=== PATIENT | male | born 1960 | race Hispanic/Latino ===

== ENCOUNTER 2018-07-08 16:06 | Emergency (ER) | payer BC ==
[2018-07-08] MEDS ORDERED: HYDROCODONE/APAP 7.5/325 MG TAB ONE (17:11)
--- NOTE | 2018-07-08 17:39 | RAD REPORT ---
EXAM DESCRIPTION: CT - Spine Lumbar Wo Con - 07/08/2018 5:30 pm CLINICAL HISTORY: Radiculopathy. LOWER BACK PAIN COMPARISON: None TECHNIQUE: Axial noncontrast CT imaging of the lumbar spine was performed with coronal and sagittal re-formatted images. All CT scans are performed using dose optimization technique as appropriate and may include automated exposure control or mA/KV adjustment according to patient size. FINDINGS: A [id number] anterior compression fracture affects the L1 vertebral body. The loss o f vertebral body height is estimated at 30%. The surrounding soft tissues are mildly thickened. No in volvement of the posterior elements is seen. No canal compromise. Prominent degenerative changes present at L5-S1 with vacuum disc degeneration and endplate osteophyte s. This results in bilateral foraminal narrowing at this level. Bilateral calcifications both kidneys compatible with nephrolithiasis. IMPRESSION: Acute moderate anterior wedge compression fracture the L1 vertebral body as detailed. Bilateral nephrolithiasis without hydronephrosis. Prominent L5-S1 spondylosis.
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
== END 2018-07-08 18:47 | disposition home or self-care (01) ==
LOC: ER 16:06
DX: M48.56XA Collapsed vertebra, not elsewhere classified, lumbar region, initial encounter for fracture (principal); F17.200 Nicotine dependence, unspecified, uncomplicated
CPT/HCPCS: 72131; 99284

== ENCOUNTER 2018-10-10 09:39 | Emergency (ER) | payer BC ==
[2018-10-10] MEDS ORDERED: HYDROMORPHONE HCL 1 MG/ML INJ ONE ×2 (10:47→16:24)
[2018-10-10] MEDS ORDERED: KETOROLAC 30 MG/ML INJ ONE (10:47)
[2018-10-10] MEDS ORDERED: DIAZEPAM 10 MG/2 ML INJ SYRINGE ONE (10:48)
[2018-10-10] MEDS ORDERED: DEXAMETHASONE 10 MG/ML VIAL ONE ×2 (11:06→12:25)
[2018-10-10 11:15] LABS: Absolute Lymphocytes (CBC) 1.1 K/uL (0.7-4.9); Absolute Monocytes 0.9 K/uL (0.1-1.3); Absolute Neutrophil 12.6 K/uL (1.8-8.0); Basophils % 0.3 % (0-1.3); Eosinophils % 0.3 % (0-4.4); Hematocrit 41.6 % (39.6-49.0); Lymphocytes % 7.6 % (15.3-44.8); MCH 31.4 pg (27.0-35.0); MCV 92.5 fL (80-100); MPV 7.7 fL (7.6-11.3); Monocytes % 6.1 % (3.3-12.3)
[2018-10-10 11:25] LABS: Protime INR 1.28
[2018-10-10 11:31] LABS: ALT/SGPT 18 U/L (12-78); AST/SGOT 9 U/L (15-37); Albumin 3.8 g/dL (3.4-5.0); Alkaline Phosphatase 106 U/L (45-117); BUN Blood Urea Nitrogen 13 mg/dL (7-18); Bicarbonate 26 mmol/L (21-32); Bilirubin Direct 0.3 mg/dL (0-0.2); Bilirubin Total 0.9 mg/dL (0.2-1.0); Glucose Level 85 mg/dL (74-106); Magnesium 2.2 mg/dL (1.8-2.4); NT PRO-BNP 273 pg/mL (<125); Potassium 4.1 mmol/L (3.5-5.1); Protein, Total 7.9 g/dL (6.4-8.2); Sodium Level 139 mmol/L (136-145); Troponin (Emerg Dept Use Only) < 0.02 ng/mL (0.0-0.045)
[2018-10-10 11:33] LABS: Blood Morphology Comment NOT SEEN (NOT SEEN); Platelet Estimate ADEQ
--- NOTE | 2018-10-10 11:45 | EKG ---
Test Date: 2018-10-10 Test Time: 10:49:25 Lead Software Qa Engineer: ALMA DELIA MEASUREMENT RESULTS: Intervals: Rate: 81 [place]: 176 QRSD: 124 QT: 364 QTc: 422 Josephine: P: 33 [place]: 176 QRS: 19 T: 41 INTERPRETIVE STATEMENTS: Normal sinus rhythm Nonspecific intraventricular conduction delay Borderline ECG Compared to ECG 04/10/2014 17:20:31 Intraventricular conduction delay now present Electronically Signed On 10-10-18 11:43:55 PULLEY MAINTAINER by Matthew Mijares
--- NOTE | 2018-10-10 12:08 | RAD REPORT ---
EXAM DESCRIPTION: MRI - Lumbar Spine Wo Con - 10/10/2018 11:44 am CLINICAL HISTORY: Radiculopathy and back pain COMPARISON: June 2018 cat scan TECHNIQUE: Sagittal T1, T2 and STIR weighted sequences were obtained. Axial T1 and T2 sequences were obtained through the lumbar disc levels. FINDINGS: Moderate compression fracture involves the L1 vertebral body described on the June 2018 exam. L1-2, L2-3 and L3-4 demonstrate no significant abnormality A moderate left paracentral/posterolateral disc herniation is present at L4-5. Compression upon the l eft anterior aspect of the thecal sac is seen. . Ligamentum flavum and facet hypertrophy is seen. Disc bulge and facet hypertrophy is seen at L5-S1. Osteophytes are noted. Moderate narrowing of the r ight neural foramina is seen. Mild narrowing of the thecal sac IMPRESSION: Moderate left paracentral/posterolateral disc herniation L4-5 Spondylosis L5-S1 resulting in moderate right foraminal stenosis
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
--- NOTE | 2018-10-10 12:24 | EDPHYS ---
Physician Documentation [facility] Name: Boyd Cole Age: 57 yrs Sex: Male : 1960 Arrival Date: 10/10/2018 Time: 09:48 Bed 17 Private MD: ED Physician Marcus Flores HPI: 10/10 10:39 This 57 yrs old Male presents to ER via EMS with complaints of Back Pain. edward 10:39 The patient presents with pain that is acute, with no known mechanism of injury. The edward symptoms are located in the low back, lumbar area. Onset: The symptoms/episode began/occurred 2 day(s) ago. The pain radiates to the left low back and right low back. Associated signs and symptoms: The patient has no apparent associated signs or symptoms. The problem was sustained from unknown cause, hx of back injury in june,. Severity of symptoms: At their worst the symptoms were moderate, in the emergency department the symptoms are unchanged. The patient has experienced similar episodes in the past, a few times. Historical: - Allergies: :52 No Known Allergies; hb - Home Meds: :52 Zyrtec Oral [Active]; hb - PMHx: :52 None; hb - PSHx: 09:52 Knee surgery; lap band; cataract; hb - Immunization history:: Adult Immunizations up to date. - Social history:: Smoking status: Patient/guardian denies using tobacco. - Ebola Screening: : No symptoms or risks identified at this time. - Family history:: not pertinent. ROS: 10:40 Constitutional: Negative for fever, chills, and weight loss, Eyes: Negative for injury, edward pain, redness, and discharge, ENT: Negative for injury, pain, and discharge, Neck: Negative for injury, pain, and swelling, Cardiovascular: Negative for chest pain, palpitations, and edema, Respiratory: Negative for shortness of breath, cough, wheezing, and pleuritic chest pain, Abdomen/GI: Negative for abdominal pain, nausea, vomiting, diarrhea, and constipation, : Negative for injury, bleeding, discharge, and swelling, MS/Extremity: Negative for injury and deformity, Skin: Negative for injury, rash, and discoloration, Neuro: Negative for headache, weakness, numbness, tingling, and seizure, Psych: Negative for depression, anxiety, suicide ideation, homicidal ideation, and hallucinations, Allergy/Immunology: Negative for hives, rash, and allergies, Endocrine: Negative for neck swelling, polydipsia, polyuria, polyphagia, and marked weight changes, Hematologic/Lymphatic: Negative for swollen nodes, abnormal bleeding, and unusual bruising. 10:40 Back: Positive for injury or acute deformity, decreased range of motion, pain at rest, pain with movement, radiated pain, of the lumbar area, low back area and left low back. Exam: 10:40 Constitutional: This is a well developed, well nourished patient who is awake, alert, edward and in no acute distress. Head/Face: Normocephalic, atraumatic. Eyes: Pupils equal round and reactive to light, extra-ocular motions intact. Lids and lashes normal. Conjunctiva and sclera are non-icteric and not injected. Cornea within normal limits. Periorbital areas with no swelling, redness, or edema. ENT: Nares patent. No nasal discharge, no septal abnormalities noted. Tympanic membranes are normal and external auditory canals are clear. Oropharynx with no redness, swelling, or masses, exudates, or evidence of obstruction, uvula midline. Mucous membranes moist. Neck: Trachea midline, no thyromegaly or masses palpated, and no cervical lymphadenopathy. Supple, full range of motion without nuchal rigidity, or vertebral point tenderness. No Meningismus. Chest/axilla: Normal chest wall appearance and motion. Nontender with no deformity. No lesions are appreciated. Cardiovascular: Regular rate and rhythm with a normal S1 and S2. No gallops, murmurs, or rubs. Normal PMI, no JVD. No pulse deficits. Respiratory: Lungs have equal breath sounds bilaterally, clear to auscultation and percussion. No rales, rhonchi or wheezes noted. No increased work of breathing, no retractions or nasal flaring. Abdomen/GI: Soft, non-tender, with normal bowel sounds. No distension or tympany. No guarding or rebound. No evidence of tenderness throughout. Male : Normal genitalia with no discharge or lesions. Skin: Warm, dry with normal turgor. Normal color with no rashes, no lesions, and no evidence of cellulitis. MS/ Extremity: Pulses equal, no cyanosis. Neurovascular intact. Full, normal range of motion. Neuro: Awake and alert, GCS 15, oriented to person, place, time, and situation. Cranial nerves II-XII grossly intact. Motor strength 5/5 in all extremities. Sensory grossly intact. Cerebellar exam normal. Normal gait. Psych: Awake, alert, with orientation to person, place and time. Behavior, mood, and affect are within normal limits. 10:40 Back: pain, that is moderate, ROM is painful, with all movement, normal spinal alignment noted, CVA tenderness, is absent, muscle spasm, is appreciated in the left low back and right low back. Vital Signs: 09:51 BP 166 / 85; Pulse 77; Resp 16; Temp 98; Pulse Ox 100% on R/A; Pain 5/10; hb 10:45 BP 171 / 84; Pulse 74; Resp 15; Pulse Ox 98% on R/A; Pain 10/10; hb 10:55 Pulse Ox 88% on R/A; hb 11:00 Pulse Ox 99% on 2 lpm NC; hb 12:15 BP 130 / 80; Pulse 77; Resp 15; Pulse Ox 98% on 2 lpm NC; Pain 5/10; hb 15:27 BP 138 / 86; Pulse 84; Resp 18; Pulse Ox 97% on R/A; tl3 MDM: 09:59 Patient medically screened. [facility] 10:41 Data reviewed: vital signs, nurses notes, lab test result(s), EKG, radiologic studies, [facility] CT scan, MRI, plain films. 10/10 10:38 Order name: Basic Metabolic Panel; Complete Time: 11:54 [facility] 10/10 10:38 Order name: CBC with Diff; Complete Time: 11:54 [facility] 10/10 10:38 Order name: LFT's; Complete Time: 11:54 [facility] 10/10 10:38 Order name: Magnesium; Complete Time: 11:54 [facility] 10/10 10:38 Order name: NT PRO-BNP; Complete Time: 11:54 [facility] 10/10 10:38 Order name: PT-INR; Complete Time: 11:31 [facility] 10/10 10:38 Order name: Troponin (emerg Dept Use Only); Complete Time: 11:54 [facility] 10/10 10:38 Order name: XRAY Chest (1 view); Complete Time: 14:50 [facility] 10/10 10:38 Order name: Urine Culture [facility] 10/10 10:38 Order name: MRI Lumbar Spine wo Con; Complete Time: 12:19 [facility] 10/10 11:34 Order name: Manual Differential; Complete Time: 11:54 EDMS 10/10 12:08 Order name: Urine Dipstick--Ancillary (enter results); Complete Time: 14:50 gm 10/10 10:38 Order name: EKG; Complete Time: 10:39 [facility] 10/10 10:38 Order name: Cardiac monitoring; Complete Time: 11:04 [facility] 10/10 10:38 Order name: EKG - Nurse/Tech; Complete Time: 11:04 [facility] 10/10 10:38 Order name: IV Saline Lock; Complete Time: 11:04 [facility] 10/10 10:38 Order name: Labs collected and sent; Complete Time: 11:04 [facility] 10/10 10:38 Order name: O2 Per Protocol; Complete Time: 11:04 [facility] 10/10 10:38 Order name: O2 Sat Monitoring; Complete Time: 11:04 [facility] 10/10 10:38 Order name: Urine Dipstick-Ancillary (obtain specimen); Complete Time: 12:07 [facility] Administered Medications: 10:44 Drug: Dilaudid 1 mg Route: IVP; Site: right antecubital; hb 11:55 Follow up: Response: No adverse reaction hb 10:44 Drug: Zofran 4 mg Route: IVP; Site: right antecubital; hb 11:55 Follow up: Response: No adverse reaction hb 10:55 Drug: NS 0.9% 1000 ml Route: IV; Rate: 1 bolus; Site: right antecubital; hb 10:55 Drug: TORadol 30 mg Route: IVP; Site: right antecubital; hb 11:55 Follow up: Response: No adverse reaction hb 10:55 Drug: Valium 5 mg Route: IVP; Site: right antecubital; hb 11:55 Follow up: Response: No adverse reaction hb 10:55 Drug: Decadron - Dexamethasone 10 mg Route: IVP; Site: right antecubital; hb 11:55 Follow up: Response: No adverse reaction hb 12:21 Drug: Decadron - Dexamethasone 10 mg Route: IVP; Site: right antecubital; hb 13:20 Follow up: Response: No adverse reaction sg Disposition: 10/10/18 12:23 Transfer ordered to [facility]. Diagnosis is Low back pain - intractable, L4-5 disk herniation, sac compression. - Reason for transfer: Higher level of care. - Accepting physician is to [facility], intractable pain. - Condition is Fair. - Problem is new. - Symptoms have improved. Signatures: Dispatcher [employer] EDMarcus Dexter MD MD cha Williams, Irene, RN RN iw Samia Ba RN RN hb Gay, Steven RN sg Corrections: (The following items were deleted from the chart) 18:32 12:23 10/10/2018 12:23 Transfer ordered to [facility]. Diagnosis is iw Low back pain - intractable, L4-5 disk herniation, sac compression. Reason for transfer: Higher level of care. Accepting physician is to [facility], intractable pain. Condition is Fair. Problem is new. Symptoms have improved. edward
--- NOTE | 2018-10-10 13:16 | RAD REPORT ---
EXAM DESCRIPTION: Tori Single View10/10/2018 11:09 am CLINICAL HISTORY: Cough COMPARISON: 2013 FINDINGS: The patient is in a poor degree of inspiration. Lungs appear grossly clear. The heart is n ormal size IMPRESSION: No acute abnormalities displayed. If patient's symptoms persist PA and lateral chest se mona would be recommended
[2018-10-10 14:05] LABS: Urine Blood TRACE (NEG); Urine Glucose NEGATIVE (NEG); Urine Protein NEGATIVE (NEG); Urine Specific Gravity 1.025 (1.005-1.030); Urine pH 6.5 (5.0-7.0)
[2018-10-10] MEDS ORDERED: ONDANSETRON 4 MG/2 ML VIAL ONE (16:24)
[2018-10-10 18:38] VITALS: TEMP 98
[2018-10-10 18:44] VITALS: BP 138/86; O2SAT 97
== END 2018-10-10 18:32 | disposition short-term general hospital (02) ==
LOC: ER 09:39
DX: M51.26 Other intervertebral disc displacement, lumbar region (principal); G95.29 Other cord compression
CPT/HCPCS: 36415; 71045; 72148; 80048; 80076; 81003; 83735; 83880; 84484; 85025; 85610; 87086; 87088; 93005; 96374; 96375; 99284; J1100; J1170; J2405; J3360

== ENCOUNTER 2018-10-14 20:53 | Inpatient (IN) | payer BC ==
--- OUTSIDE RECORDS SUMMARY | 2018-10-14 20:55 | XMS REPORT | Clinical Summary ---
:1960 Author Organization [facility] Address [address] [place] [address] Care Team Providers Name Role Phone Unavailable Primary Care Provider Unavailable Allergies No Known Allergies Medications Medication Sig Dispensed Refills Start Date End Date Status naproxen (NAPROSYN) Take 500 mg by 0 Active 500 MG tablet mouth 2 (two) times daily with breakfast and dinner. cetirizine-pseudoeph Take 1 tablet by 0 Active edrine (ZYRTEC-D) 5 mouth nightly. mg-120 mg per tablet HYDROcodone-acetamin Take 1 tablet by 30 tablet 0 10/13/2018 10/23/2018 Active ophen (NORCO 10-325) mouth every 4 10-325 mg per tablet (four) hours as needed for Pain for up to 10 days. Max Daily Amount: 6 tablets tiZANidine Take 1 tablet (4 30 tablet 1 10/13/2018 10/23/2018 Active (ZANAFLEX) 4 MG mg total) by mouth tablet every 6 (six) hours as needed for up to 10 days. Active Problems Problem Noted Date Back pain 10/10/2018 Lumbar strain 10/10/2018 L4-L5 disc bulge 10/10/2018 Spondylolisthesis at L5-S1 level 10/10/2018 Encounters Date Type Specialty Care Team Description 10/13/2018 Travel 10/10/2018 - Hospital General Internal Miguela, L4-L5 disc bulge (Primary Dx); 10/13/2018 Encounter Medicine Danilo Samaniego MD Strain of lumbar region, initial encounter; Thomas Lopez Spondylolisthesis at L5-S1 level; MD Francine Stinson of lumbar region, subsequent encounter 10/10/2018 Travel after 10/13/2017 Social History Tobacco Use Types Packs/Day Years Used Date Current Every Day Smoker 3 35 Smokeless Tobacco: Never Used Alcohol Use Drinks/Week oz/Week Comments No Alcohol Habits Answer Date Recorded How often do you have a drink containing alcohol? Never 10/10/2018 How many drinks containing alcohol do you have on a typical Not asked day when you are drinking? How often do you have six or more drinks on one occasion? Not asked Sex Assigned at Date Recorded Not on file Job Start Date Occupation Industry Not on file Not on file Not on file Travel History Travel Start Travel End No recent travel history available. Last Filed Vital Signs Vital Sign Reading Time Taken Blood Pressure 151/67 10/13/2018 12:21 PM [employer] Pulse 87 10/13/2018 12:21 PM [employer] Temperature 35.7 C (96.3 F) 10/13/2018 12:21 PM [employer] Respiratory Rate 19 10/13/2018 12:21 PM [employer] Oxygen Saturation 95% 10/13/2018 12:21 PM [employer] Inhaled Oxygen Concentration - - Weight 86.2 kg (190 lb) 10/10/2018 6:21 PM [employer] Height 172.7 cm (5' 8") 10/13/2018 6:19 AM [employer] Body Mass Index - - Plan of Treatment Not on file Results Not on fileafter 10/13/2017 Insurance Payer Benefit Plan / Subscriber ID Type Phone Address Group BLUE CROSS/BLUE BCBS PPO POS EPO xxxxxxxxxxxx PPO [phone] [address] [place] [address] ([place]) [place] [address] Advance Directives For more information, please contact:[address] [phone] Code Status Date Activated Date Inactivated Comments Full Code 10/10/2018 6:42 PM This code status was determined by: Patient
[2018-10-14 21:38] LABS: Absolute Lymphocytes (CBC) 0.5 K/uL (0.7-4.9); Absolute Monocytes 1.8 K/uL (0.1-1.3); Absolute Neutrophil 20.7 K/uL (1.8-8.0); Basophils % 0.2 % (0-1.3); Hematocrit 39.9 % (39.6-49.0); MCH 30.7 pg (27.0-35.0); MCV 90.1 fL (80-100); MPV 8.2 fL (7.6-11.3); Monocytes % 7.7 % (3.3-12.3); RBC Red Blood Cell Count 4.43 M/uL (4.33-5.43)
[2018-10-14] MEDS ORDERED: LIDOCAINE 1% MPF 5 ML VIAL ONE (21:41)
[2018-10-14] MEDS ORDERED: MEPERIDINE HCL 25 MG/0.5 ML ONE (21:41)
--- NOTE | 2018-10-14 22:05 | RAD REPORT ---
EXAM DESCRIPTION: RAD - Knee Left 3 View - 10/14/2018 9:53 pm CLINICAL HISTORY: Knee pain, swelling COMPARISON: None. FINDINGS: No fracture, dislocation or periosteal reaction.Large joint effusion is present. Medial an d lateral compartment narrowing present. Marginal spurs are present in all compartments. No soft tiss ue abnormality. IMPRESSION: Large joint effusion with degenerative changes in the knee joint. No acute bone finding. Clinical concerns for internal derangement or occult bony injury could be further assessed with MR im aging.
--- NOTE | 2018-10-14 22:08 | RAD REPORT ---
EXAM DESCRIPTION: RAD - Elbow Left 3 View - 10/14/2018 9:53 pm CLINICAL HISTORY: Nontraumatic elbow pain COMPARISON: None. FINDINGS: No fracture is identified and no elevated posterior fat pad. There is no dislocation or pe riosteal reaction noted. Mild degenerative changes are present at the elbow joint. No foreign body o r significant soft tissue finding. IMPRESSION: Negative left elbow examination for acute finding.
[2018-10-14 22:48] LABS: Blood Morphology Comment NOT SEEN (NOT SEEN); Platelet Estimate ADEQ
[2018-10-14 23:16] LABS: Potassium 3.5 mmol/L (3.5-5.1)
[2018-10-15] MEDS ORDERED: VANCOMYCIN 1 GM/250 ML BAG ONE (00:53)
[2018-10-15 01:11] LABS: Appearance TURBID (CLEAR); Body Fluid Source SYNOVIAL; Body Fluid WBC 42795 /mm^3; Color of fluid Yellow (COLORLESS)
--- NOTE | 2018-10-15 01:36 | EDPHYS ---
Physician Documentation [facility] Name: Boyd Cole Age: 57 yrs Sex: Male : 1960 Arrival Date: 10/14/2018 Time: 20:54 Bed 17 Private MD: ED Physician Beto Frederick HPI: 10/14 21:12 This 57 yrs old Male presents to ER via EMS with complaints of swollen and rn painful left knee. 21:12 The patient presents with pain, swelling. The complaints affect the left knee. Onset: rn The symptoms/episode began/occurred today. Modifying factors: The symptoms are alleviated by remaining still, the symptoms are aggravated by movement, bending knee. Severity of symptoms: At their worst the symptoms were moderate, in the emergency department the symptoms are unchanged. The patient has experienced similar episodes in the past. Reports left knee pain and swelling, just discharged from [facility] yesterday for back spasm and chronic back issues, reports at home, not moving much, + dark urine and swelling/pain to left knee, + pain to left elbow as well, no drug use, no trauma. No fever. Knee swelling has happened before, has had knee surgeries, but never this bad. . Historical: - Allergies: 21:06 No Known Allergies; jb4 - Home Meds: 21:06 Hydrocodone-Acetaminophen Oral [Active]; tizanadine [Active]; jb4 - PMHx: 21:06 None; jb4 - PSHx: 21:06 Knee surgery; cataract; lap band; jb4 - Immunization history:: Adult Immunizations up to date. - Social history:: Smoking status: Patient uses tobacco products. - Ebola Screening: : No symptoms or risks identified at this time. - Family history:: not pertinent. - Hospitalizations: : No recent hospitalization is reported. ROS: 21:12 Constitutional: Negative for fever, chills, and weight loss, Eyes: Negative for injury, rn pain, redness, and discharge, Neck: Negative for injury, pain, and swelling, Cardiovascular: Negative for chest pain, palpitations, and edema, Respiratory: Negative for shortness of breath, cough, wheezing, and pleuritic chest pain, Abdomen/GI: Negative for abdominal pain, nausea, vomiting, diarrhea, and constipation, MS/Extremity: + left elbow and knee pain, + left knee swelling Skin: Negative for injury, rash, and discoloration, Neuro: Negative for headache, weakness, numbness, tingling, and seizure. Exam: 21:12 Constitutional: This is a well developed, well nourished patient who is awake, alert, rn appears uncomfortable with transfer Head/Face: Normocephalic, atraumatic. Eyes: Pupils equal round and reactive to light, extra-ocular motions intact. Lids and lashes normal. Conjunctiva and sclera are non-icteric and not injected. Cornea within normal limits. Periorbital areas with no swelling, redness, or edema. ENT: dry MM Cardiovascular: tachycardic, regular, no murmur Respiratory: Lungs have equal breath sounds bilaterally, clear to auscultation. No rales, rhonchi or wheezes noted. No increased work of breathing, no retractions or nasal flaring. Abdomen/GI: soft, non-tender Skin: Warm, dry with normal turgor. Normal color with no rashes, no lesions, and no evidence of cellulitis. MS/ Extremity: Pulses equal, no cyanosis. Neurovascular intact. + swollen and warm left knee with painful ROM, + painful ROM left elbow without swelling or redness. Neuro: Awake and alert, GCS 15, oriented to person, place, time, and situation. Cranial nerves II-XII grossly intact. Motor strength 5/5 in RUE/RLE/LLE (4/5 LUE limited due to pain). Sensory grossly intact. Cerebellar exam normal Vital Signs: 21:06 BP 148 / 87; Pulse 106; Resp 20; Temp 99.7(O); Pulse Ox 96% on R/A; Weight 86.18 kg jb4 (R); Height 5 ft. 8 in. (172.72 cm) (R); Pain 7/10; 21:30 BP 150 / 87; Pulse 106; Resp 18; Pulse Ox 97% on R/A; lp1 22:30 BP 140 / 85; Pulse 91; Resp 18; Pulse Ox 98% on R/A; lp1 23:15 BP 129 / 87; Pulse 82; Resp 16; Pulse Ox 98% on R/A; lp1 12/03 00:00 BP 140 / 78; Pulse 78; Resp 16; Pulse Ox 97% on R/A; lp1 00:45 BP 115 / 79; Pulse 80; Resp 18; Pulse Ox 95% on R/A; lp1 01:30 BP 151 / 81; Pulse 73; Resp 18; Pulse Ox 99% on R/A; lp1 02:25 Temp 98(O); lp1 02:30 BP 137 / 79; Pulse 75; Resp 16; Pulse Ox 100% on R/A; lp1 10/14 21:06 Body Mass Index 28.89 (86.18 kg, 172.72 cm) jb4 Procedures: 10/14 23:15 Joint Treatment: Aspiration of left knee using Lidocaine, 22g spinal needle. Removed 40 rn ml's of clear fluid, yellow fluid, Specimen sent to lab. Dressed with 4x4s, Patient tolerated well. MDM: 21:09 Patient medically screened. rn 10/15 01:26 ED course: COnsulted with Dr. Byrd, will see in AM, will admit to Dr. Dominguez. rn 01:34 Differential diagnosis: septic arthritis. Data reviewed: vital signs, nurses notes, mechanical shop laborer test result(s), radiologic studies, plain films, and as a result, I will admit patient. Counseling: I had a detailed discussion with the patient and/or guardian regarding: the historical points, exam findings, and any diagnostic results supporting the discharge/admit diagnosis, radiology results, the need for further work-up and treatment in the hospital. Admission orders: after a detailed discussion of the patient's condition and case, the admit orders are written by me. 10/14 21:11 Order name: CBC with Diff rn 10/14 21:11 Order name: Basic Metabolic Panel rn 10/14 21:11 Order name: Urine Culture rn 10/14 21:11 Order name: Urine Microscopic Only rn 10/14 21:11 Order name: CK rn 10/14 21:11 Order name: Blood Culture Adult (2) rn 10/14 21:11 Order name: Sed Rate rn 10/14 21:11 Order name: CRP rn 10/14 21:39 Order name: CBC with Automated Diff; Complete Time: 23:05 EDMS 10/14 21:40 Order name: Procalcitonin bb 10/14 22:25 Order name: Procalcitonin; Complete Time: 23:05 EDMS 10/14 22:31 Order name: Sedimentation Rate, Westergren; Complete Time: 23:05 EDMS 10/14 22:49 Order name: Manual Differential; Complete Time: 23:05 EDMS 10/14 23:05 Order name: Fluid Cell Count,Body rn 10/14 21:11 Order name: Extremity Venous Uni Ltd US rn 10/14 21:11 Order name: XRAY Elbow LEFT 3 view rn 10/14 21:11 Order name: XRAY Knee LEFT 3 view rn 10/14 22:08 Order name: RAD; Complete Time: 23:05 EDMS 10/14 22:10 Order name: RAD; Complete Time: 23:05 EDMS 10/14 23:05 Order name: Fluid Crystals rn 10/14 23:05 Order name: Body Fluid Culture rn 10/14 23:23 Order name: Basic Metabolic Panel; Complete Time: 00:27 EDMS 10/14 23:23 Order name: Creatine Phosphokinase; Complete Time: 00:27 EDMS 10/14 23:23 Order name: C-Reactive Protein; Complete Time: 00:27 EDMS 10/15 00:25 Order name: Body Fluid Culture EDTX 10/15 01:03 Order name: Body Fluid Crystals; Complete Time: 01:14 EDMS 10/15 01:53 Order name: Body Fluid Cell Count EDTX 10/14 21:11 Order name: IV Start; Complete Time: 21:29 rn Administered Medications: 10/14 21:50 Drug: Demerol 25 mg Route: IVP; Site: right wrist; lp1 22:30 Follow up: Response: Marked relief of symptoms; Pain is decreased lp1 23:00 Drug: Lidocaine (1 %) 1 vials Volume: 5 ml; Route: Infiltration; lp1 03 01:02 Drug: vancoMYCIN 1 grams Route: IVPB; Infused Over: 2 hrs; Site: right forearm; lp1 02:43 Follow up: IV Status: Infusion continued upon admission lp1 02:43 Not Given (To be given on admission to floor): Zosyn 3.375 grams IVPB once over 60 lp1 mins; (mix in NS 100 mL) Disposition: 10/15/18 01:35 Hospitalization ordered by Ginger Dominguez for Inpatient Admission. Preliminary diagnosis is Septic arthritis of left knee. - Bed requested for Telemetry/MedSurg (Inpatient). - Status is Inpatient Admission. jb4 - Condition is Stable. - Problem is new. - Symptoms have improved. UTI on Admission? No Signatures: Dispatcher [employer] EDMone Barrera RN RN kl Beto Frederick MD MD rn Pena, Laura, RN RN lp1 Jamal Reaves RN RN jb4 Corrections: (The following items were deleted from the chart) 02:19 01:35 Hospitalization Ordered by Ginger Dominguez MD for Inpatient Admission. Preliminary kl diagnosis is Septic arthritis of left knee. Bed requested for Telemetry/MedSurg (Inpatient). Status is Inpatient Admission. Condition is Stable. Problem is new. Symptoms have improved. UTI on Admission? No. rn 02:46 02:19 10/15/2018 01:35 Hospitalization Ordered by Ginger Dominguez MD for Inpatient jb4 Admission. Preliminary diagnosis is Septic arthritis of left knee. Bed requested for Telemetry/MedSurg (Inpatient). Status is Inpatient Admission. Condition is Stable. Problem is new. Symptoms have improved. UTI on Admission? No. kl
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
[2018-10-15] MEDS ORDERED: ONDANSETRON 4 MG/2 ML VIAL IV PRN (01:43)
[2018-10-15] MEDS: NA CHLORIDE 0.9% 1,000 ML IV SCH ×3 (02:00→18:19)
[2018-10-15] MEDS ORDERED: VANCOMYCIN/NS 1 gm 1 GM/250 ML BAG IVPB ONE (02:15)
[2018-10-15] MEDS ORDERED: PIPER/TAZO/NS 3.375gm 3.375 GM/100 ML BAG IVPB ONE (02:41)
[2018-10-15] MEDS ORDERED: VANCOMYCIN 1 GM/VIAL ONE (03:45)
[2018-10-15] MEDS ORDERED: NA CHLORIDE 0.9% 250 ML ONE (03:45)
[2018-10-15] MEDS ORDERED: PIPER/TAZO/NS 3.375gm 3.375 GM/100 ML BAG ONE (03:46)
[2018-10-15] MEDS ORDERED: NA CHLORIDE 0.9% 1,000 ML IV ONE (04:10)
[2018-10-15] MEDS: Levofloxacin500mg IV 500 MG/100 ML BAG IV SCH (04:45)
[2018-10-15 05:08] VITALS: BMI 28.8
[2018-10-15 06:10] LABS: Absolute Lymphocytes (CBC) 0.9 K/uL (0.7-4.9); Absolute Monocytes 1.6 K/uL (0.1-1.3); Absolute Neutrophil 16.5 K/uL (1.8-8.0); Basophils % 0.1 % (0-1.3); Eosinophils % 0.1 % (0-4.4); Lymphocytes % 4.6 % (15.3-44.8); MCH 31.2 pg (27.0-35.0); MCV 89.8 fL (80-100); MPV 8.7 fL (7.6-11.3); Monocytes % 8.4 % (3.3-12.3); RBC Red Blood Cell Count 4.12 M/uL (4.33-5.43)
[2018-10-15 06:18] LABS: Protime INR 1.32
[2018-10-15 06:21] LABS: Potassium 3.5 mmol/L (3.5-5.1)
--- NOTE | 2018-10-15 07:44 | RAD REPORT ---
EXAM DESCRIPTION: USExtremity Venous Uni Ltd10/14/2018 10:09 pm CLINICAL HISTORY: left leg pain COMPARISON: None. FINDINGS: Left common femoral, superficial femoral, popliteal and posterior tibial veins are compre ssible and demonstrate augmentation. Doppler demonstrates good flow. IMPRESSION: No evidence of deep venous thrombosis involving the left lower extremity.
--- NOTE | 2018-10-15 08:00 | P.HP ---
Certification for Inpatient Patient admitted to: Inpatient With expected LOS: >2 Midnights Patient will require the following post-hospital care: None Practitioner: I am a practitioner with admitting privileges, knowledge of patient current condition, hospital course, and medical plan of care. Services: Services provided to patient in accordance with Admission requirements found in Title 42 Section 412.3 of the Code of Federal Regulations Patient History Date of Service: 10/15/18 Reason for admission: Septic arthritis History of Present Illness: Patient is a 57-year-old gentleman who came into the hospital with pain in his left knee. Apparently was swollen twice as large as the right knee. The family brought him into the hospital to be evaluated. He was in the ER a few days ago with back pain and herniated discs. There was no cord compression so patient was discharged home from [facility]. When he got home he was doing okay until 24 hr later when the knee started to swell. As the swelling worsened he came to the ER. In the ER he had a arthrocentesis performed which revealed Gram-positive rods from the fluid. Patient will be admitted for septic arthritis. Patient also has involvement of the left elbow. Blood cultures are pending. Echocardiogram is pending. Patient will need to be treated with broad-spectrum antibiotic coverage pending culture results. Allergies No Known Allergies Allergy (Verified 09/07/17 16:50) Home Medications: Cetirizine HCl/Pseudoephedrine [Zyrtec-D Tablet] 1 each PO DAILY 09/07/17 Triamcinolone Acetonide [Nasacort] 10.8 ml NS DAILY 09/07/17 Hydrocodone Bit/Acetaminophen [Hydrocodon-Acetaminophn 10-325] 1 tab PO Q4HP PRN 10/15/18 Naproxen [Naprosyn] 500 mg PO BID 10/15/18 Tizanidine [Zanaflex*] 4 mg PO Q6HP PRN 10/15/18 - Past Medical/Surgical History Has patient received pneumonia vaccine in the past: No Diabetic: No -: Allergic rhinitis -: cataracts l eye -: Back pain -: bilateral knee surgeries -: lap gloria -: lap band surgery -: lens replacement left eye -: Spinal fusion - Family History Father Medical History: Cancer Notes: , esophageal ca Mother Medical History: Heart disease, Diabetes Notes: - Social History Smoking Status: Current every day smoker Alcohol use: No CD- Drugs: No Caffeine use: Yes Place of Residence: Home Review of Systems 10-point ROS is otherwise unremarkable Physical Examination - Vital Signs Temperature: 98.1 F Blood Pressure: 125/63 Pulse: 68 Respirations: 20 Pulse Ox (%): 96 - Physical Exam General: Alert, In no apparent distress, Oriented x3 HEENT: Atraumatic, PERRLA, Mucous membr. moist/pink, EOMI, Sclerae nonicteric Neck: Supple, 2+ carotid pulse no bruit, No LAD, Without JVD or thyroid abnormality Respiratory: Clear to auscultation bilaterally, Normal air movement Cardiovascular: Regular rate/rhythm, Normal S1 S2, No murmurs Gastrointestinal: Normal bowel sounds, Soft and benign, Non-distended, No tenderness Musculoskeletal: No clubbing, Swelling, Erythema, Tenderness, Warmth Integumentary: Tenderness/swelling, Erythema, Warmth Neurological: Normal gait, Normal speech, Normal strength at 5/5 x4 extr, Normal tone, Sensation intact, Cranial nerves 3-12 intact, Normal affect Lymphatics: No axilla or inguinal lymphadenopathy - Studies Laboratory Data (last 24 hrs) 10/14/18 21:25: Sodium 132 L, Potassium 3.5, BUN 33 H D, Creatinine 1.10, Glucose 157 H 10/14/18 21:25: WBC 23.0 H* D, Hgb 13.6, Hct 39.9, Plt Count 200 Assessment & Plan - Problems (Diagnosis) (1) Septic arthritis Current Visit: Yes Status: Acute (2) Gram positive septicemia Current Visit: Yes Status: Acute (3) Polyarthropathy Current Visit: Yes Status: Acute - Plan 1. Continue with IV antibiotic 2. Continue with local wound care 3. Orthopedic consultation 4. Gentle IV hydration 5. Monitor CBC and await blood culture results 6. Strict blood sugar monitoring 7. Pain control 8. Will schedule echocardiogram as patient has polyarthropathy 9. GI and DVT prophylaxis Discharge Plan: Home Plan to discharge in: Greater than 2 days - Advance Directives Does patient have a Living Will: No Does patient have a Durable POA for Healthcare: No - Code Status/Comfort Care Code Status Assessed: Yes Code Status: Full Code Critical Care: No Time Spent Managing PTS Care (In Minutes): 45
[2018-10-15 08:10] LABS: Urine Appearance CLOUDY; Urine Blood NEGATIVE (NEG); Urine Color DK YELLOW; Urine Glucose NEGATIVE (NEG); Urine Protein 1+ (NEG); Urine Specific Gravity 1.025 (1.005-1.030); Urine pH 5.5 (5.0-7.0)
[2018-10-15 08:14] LABS: Urine Bilirubin 1+ (NEG); Urine Microscopic Reflex ORDER UMIC
[2018-10-15 08:21] LABS: Urine Amorphous Sediment 2+ /HPF (NONE SEEN); Urine Bacteria LOADED /HPF (NONE SEEN); Urine Culture Reflex Order NOT NEEDED; Urine Mucus 1+ /HPF (NONE SEEN); Urine RBC NONE SEEN /HPF (NONE SEEN)
[2018-10-15] MEDS ORDERED: VANCOMYCIN 1.5 GM in NA CHLORIDE 0.9% 500 ML IVPB SCH ×2 (09:00→20:00)
[2018-10-15] MEDS: HYDROMORPHONE HCL 1 MG/ML INJ IV PRN ×2 (09:46→22:14)
[2018-10-15] MEDS ORDERED: LIDOCAINE 1% MPF 5 ML VIAL IJ ONE (10:47)
[2018-10-15 11:53] LABS: Body Fluid WBC 22689 /mm^3
[2018-10-15] MEDS ORDERED: LIDOCAINE 1% MPF 5 ML VIAL IM ONE (12:11)
[2018-10-15] MEDS ORDERED: FENTANYL CITR 100 MCG/2 ML ONE ×3 (12:57→16:12)
[2018-10-15] MEDS ORDERED: LIDOCAINE 2% MPF 5 ML VIAL ONE (12:57)
[2018-10-15] MEDS ORDERED: PROPOFOL 200 MG/20 ML VIAL IV ONE (12:57)
[2018-10-15] MEDS ORDERED: MIDAZOLAM HCL 2 MG/2 ML INJ ONE (12:57)
[2018-10-15] MEDS ORDERED: Ringers Lactate 1,000 ML IV ONE (13:35)
[2018-10-15] MEDS ORDERED: BUPIVACAINE 0.25% PF 10 ML VIAL ONE (15:12)
[2018-10-15] MEDS: MEPERIDINE HCL 50 MG/ML AMP ONE ×3 (16:58→17:12)
--- NOTE | 2018-10-15 17:07 | P.BOP ---
Preoperative diagnosis: LEFT KNEE AND LEFT ELBOW SEPTIC SYNOVITIS Postoperative diagnosis: SAME Primary procedure: ARTHROSCOPIC IRRIGATION AND DEBRIDEMENT LEFT KNEE SEPTIC SYNOVITIS Secondary procedure: ASPIRATION AND PULSE LAVAGE LEFT ELBOW SEPTIC SYNOVITIS Cath Lab: [facility]jandro Byrd Estimated blood loss: 50 mL Specimen: CULTURES SENT LEFT KNEE Findings: HYPERTROPHIC SYNOVITIS&FIBRIN DEBRIS L KNEE;SAME YELLOW TURBID ASP.L ELBOW Anesthesia: General Complications: None Fluids & blood products: INJ 10 mL 0.25%MARCAINE PLAIN L KNEE;5mL L ELBOW Transferred to: Recovery Room Condition: Good
[2018-10-15 17:25] LABS: Appearance VERY TURBID (CLEAR); Body Fluid Source SYNOVIAL; Color of fluid Red (COLORLESS)
[2018-10-15] MEDS: VANCOMYCIN 1.5 GM in NA CHLORIDE 0.9% 500 ML IVPB SCH (18:18)
[2018-10-16] MEDS: Levofloxacin500mg IV 500 MG/100 ML BAG IV SCH (01:16)
--- NOTE | 2018-10-16 03:02 | CON ---
Date of Consultation: 10/15/2018 Requesting Physician: The consultation request is by Dr. Ginger Dominguez. Reason For Consultation: Consultation is in regard to septic arthritis, left knee. History Of Present Illness: This 57-year-old male initially woke up with severe back pain and rapidl y became unable to ambulate because of pressure and pain in his lower back. The patient came to the emergency room at [facility], where he was evaluated with MRI scan of the lumbar spine , which showed lumbar disk herniation and significant neurologic concerns, so the patient was transfe rred to [facility] in [place], where he stayed for several days at bedrest. He was being mo bilized with a walker when he noted discomfort in his left knee. He was using the walker, when he al so noted discomfort in his left elbow. The patient was discharged to home and on the day following h is return to home, he awoke to find his knee drastically swollen and noted losing range of motion for his left elbow along with increasing discomfort with its use. The patient came to [facility] ED, wh ere arthrocentesis of the left knee produced more than 60 mL of yellow turbid fluid and the patient w as admitted for treatment of septic arthritis, initiated on vancomycin and Zosyn IV antibiotics. Ort ora consultation was subsequently requested. Allergies: THE PATIENT HAS NO KNOWN ALLERGIES. Medications: Medications taken were reviewed. Past Medical History: The patient has had been treated for back pain, bilateral knee surgeries, arth roscopies, cataracts, 1 eye and allergic rhinitis. The patient also surgically had a lap gloria proce dure and lap band surgery and a spinal fusion. Family History: Reviewed, noncontributory as was a 10-point review of systems. Review of Systems: Noncontributory. Physical Examination: Vital Signs: Temperature 98.1, blood pressure 125/63, pulse 68, respirations 20, and pulse oximeter is 96%. HEENT: Within normal limits. Neck: Supple. Chest: Clear to auscultation. Heart: Regular rate and rhythm. Abdomen: Soft and nontender. Active bowel sounds were present. Genital: Deferred. Rectal: Deferred. Extremities: On examination of the extremities, the patient today after 5 syringes totaling 60 mL of fluid were removed, has returned to the turgid 4+ effusion, the patient described on the day of his presentation to the emergency room. The knee is quite painful, lacking full extension and flexion, w orking basically in the range of 45 degrees to 30 degrees towards extension and to 60 degrees towards flexion. The knee is stable to exam. The patient's elbow will not extend past 30 degrees from full extension and will not flex past 90 degrees. There is a fullness on the lateral side of the elbow, suggesting a significant joint effusion within the left elbow. Laboratory Data: The laboratory evaluation showed white blood cell count of 23.0, 90% neutrophils. Sed rate was elevated at 31. C-reactive protein was elevated at 342. Procalcitonin was 2.58, elevat ed, creatine kinase was low at 10. BUN was high at 33. The patient was hyponatremic at 132 and GFR was 69. The aspirate produced 42,795 white blood cells, 90% neutrophils. Crystals were none seen. Gram stain showed gram-positive rods and 25 white cells per oil field. Assessment: This patient is having an almost simultaneous onset of septic arthritis in the left knee and left elbow after a sudden attack of lumbago and sciatica that may or may not be related. The co ncern with sepsis in the left elbow can be further evaluated with arthrocentesis of the elbow. The p atient was presented with that option and elected to proceed after discussion of the risks and benefi ts. Materials were gathered and the left elbow lateral aspect was prepped with Betadine followed by chlorhexidine and alcohol swabs. The needle was introduced in the soft spot, just distal to the late ral epicondyle and proximal to the radial head while 1% lidocaine was being injected in the skin and subcutaneous tissue upon entry. Aspiration produced not a significant large amount of fluid, but osmani roximately 2-1/2 mL of aspirant was acquired and sent for cell count and differential, Gram stain and cultures both aerobic and anaerobic. Plan: The patient must be taken today for irrigation and debridement of the severely distended left knee septic arthritis. The early report from microbiology regarding the elbow aspirate will help dec allen if irrigation of the left elbow is appropriate at the same time. DENY/NATALIYA Voice ID: [id number] Report ID: [id number]
[2018-10-16] MEDS: HYDROMORPHONE HCL 1 MG/ML INJ IV PRN ×4 (03:21→17:22)
[2018-10-16] MEDS: VANCOMYCIN 1.5 GM in NA CHLORIDE 0.9% 500 ML IVPB SCH ×2 (03:21→16:08)
--- NOTE | 2018-10-16 03:42 | OP ---
Date of Procedure: 10/15/2018 Surgeon: Alejandro Byrd MD Custodial Supervisor: Alejandro Byrd M.D. Preoperative Diagnosis: Left knee and left elbow septic synovitis. Postoperative Diagnosis: Left knee and left elbow septic synovitis. Primary Procedure: Arthroscopic irrigation and debridement, left knee septic synovitis, followed by aspiration and pulse lavage, left elbow septic synovitis. Indications: This 57-year-old male had sudden onset of 4+ effusion, left knee, after presenting with back problems and spending several days being evaluated at [facility] in the [facility] in [place]. The patient noted some discomfort in his knee as he started ambulating after several da ys of bed rest and his ballooned up the first day after he got home. He presented and it was found t o have sepsis, proven by aspiration and simultaneous but slower onset of limited motion and pain bega n at the same time as knee symptoms and an aspiration this morning gave indication of intra-articular sepsis there as well. The lab found over 20,000 white blood cells per cubic mL. Gram stain is stil l pending and cultures are pending. The patient is taken for irrigation and debridement of his extre malathi symptomatic septic left knee. At the same time, a pulse lavage is planned for the left elbow. The patient is aware of risks and benefits. All questions have been answered and he has elected to p dago. Technique: The patient was taken to the operating room and given a general anesthetic. After being placed on the operative table, he was set up for arthroscopy with a tourniquet at the proximal left t high and a leg adler. The foot of the table was dropped, so that the lower leg would dangle. A tro ugh cushion was placed under the right lower extremity elevated to make sure the hip was not in exten malcolm during this procedure. A time-out was called. All pertinent facts were discussed. It was deci ded to proceed with the planned procedures. The scope was inserted through the distal lateral portal and an irrigation trocar was inserted through the distal medial portal. A yellow turbid purulent fl uid was withdrawn. He had 5 cc sent for culture with a Gram stain indicating gram-positive rods. Th e portion of synovial fluid was cultured again for Gram stain and culture 1 day after starting IV ant ibiotic therapy. The inspection in the knee showed fibrin debris lightly adherent to hypertrophic te nosynovitis mounds. The patient had an elevated ProTime with INR 1.35, so debridement was quite limi herbert. The fibrin debris was considered low-hanging fruit and was suctioned away with a suction shaver . The small areas of synovial tissue that were removed produced brisk bleeding and was quite limited to avoid a tense hemarthrosis following the procedure. A 9 L of normal saline were irrigated throug h the knee. Arthroscopy equipment was withdrawn and interrupted sutures of 4-0 nylon were used to cl ose the portals. A compression bandage was applied with Xeroform, 4 x 4 flats, and an ABD. Soft rol l was applied and an David wrap was applied on top of the soft roll. Attention was then turned to the left elbow. New sterile gloves were applied. The elbow was prepped and draped without a tourniquet and 18-gauge needles were placed in the intra-articular space of the composer teaching artist lateral left elbow and ir rigation fluid was passed through the joint and at one time pulse lavage was utilized with fluid jordan g in and out as it became more and more turbid. The pressure dry bandage was then applied to the lef t elbow. The initial injection provided a more pure aspirate even than attained this morning and it was the same yellow turbid fluid that was encountered in aspiration of the knee. Estimated blood los s was 50 mL. The patient was then taken to recovery room having tolerated this procedure well. Inje ction of 10 mL of 0.25% Marcaine plain was accomplished in the incisions of the left knee and 5 mL wa s injected into the puncture areas for the left elbow. DENY/NATALIYA Voice ID: [id number] Report ID: [id number]
[2018-10-16 05:04] LABS: Absolute Lymphocytes (CBC) 0.8 K/uL (0.7-4.9); Absolute Monocytes 1.1 K/uL (0.1-1.3); Absolute Neutrophil 14.4 K/uL (1.8-8.0); Basophils % 0.3 % (0-1.3); Eosinophils % 0.1 % (0-4.4); Hematocrit 35.2 % (39.6-49.0); Lymphocytes % 4.9 % (15.3-44.8); MCH 31.5 pg (27.0-35.0); MCV 90.3 fL (80-100); MPV 8.5 fL (7.6-11.3); RBC Red Blood Cell Count 3.89 M/uL (4.33-5.43)
[2018-10-16 05:18] LABS: Protime INR 1.37
[2018-10-16 05:21] LABS: BUN Blood Urea Nitrogen 19 mg/dL (7-18); Bicarbonate 21 mmol/L (21-32); Glucose Level 81 mg/dL (74-106); Potassium 3.7 mmol/L (3.5-5.1); Sodium Level 139 mmol/L (136-145)
[2018-10-16] MEDS: NA CHLORIDE 0.9% 1,000 ML IV SCH ×3 (09:15→23:02)
--- NOTE | 2018-10-16 17:08 | P.PN ---
Subjective Date of Service: 10/16/18 Chief Complaint: Septic arthritis Patient seen and examined at bedside with RN. Chart reviewed. Case discussed with orthopedic at this time. Currently patient is on IV antibiotics pending culture. Does complain of having some pain in the elbow and the left knee. However is able to move better than before Review of Systems 10-point ROS is otherwise unremarkable Physical Examination - Vital Signs Temperature: 100.2 F Blood Pressure: 198/98 Pulse: 90 Respirations: 18 Pulse Ox (%): 95 - Physical Exam General: Alert, In no apparent distress HEENT: Atraumatic, PERRLA, EOMI Neck: Supple, JVD not distended Respiratory: Clear to auscultation bilaterally, Normal air movement Cardiovascular: Regular rate/rhythm, Normal S1 S2 Gastrointestinal: Normal bowel sounds, No tenderness Musculoskeletal: Erythema, Tenderness, Warmth Integumentary: No rashes Neurological: Normal speech, Normal tone, Normal affect Lymphatics: No axilla or inguinal lymphadenopathy - Studies Microbiology Data (last 24 hrs): 10/14/18 23:00 Body Fluid - Left Knee Gram Stain - Final Medications List Reviewed: Yes Assessment And Plan - Current Problems (Diagnosis) (1) Septic arthritis Onset Date: 10/16/18 Current Visit: Yes Status: Acute Plan: Septic arthritis of the left elbow and left knee -orthopedics consulted appreciated recommendations at this time -status post arthrocentesis -pending cultures at this time -IV antibiotics vanc and Levaquin Qualifiers: Septic arthritis location: multiple locations Septic arthritis organism: due to unspecified organism Qualified Code(s): M00.9 - Pyogenic arthritis, unspecified (2) Polyarthropathy Onset Date: 10/16/18 Current Visit: Yes Status: Acute - Plan Pending clinical improvement at this time Discharge Plan: Home Plan to discharge in: Greater than 2 days - Code Status/Comfort Care Code Status Assessed: Yes Critical Care: No
[2018-10-16] MEDS: ACETAMINOPHEN 500 MG TAB PO PRN (17:22)
[2018-10-17] MEDS: Levofloxacin500mg IV 500 MG/100 ML BAG IV SCH (01:13)
[2018-10-17] MEDS: VANCOMYCIN 1.5 GM in NA CHLORIDE 0.9% 500 ML IVPB SCH ×2 (03:13→17:37)
[2018-10-17] MEDS: NA CHLORIDE 0.9% 1,000 ML IV SCH ×2 (04:00→14:10)
[2018-10-17] MEDS: HYDROMORPHONE HCL 1 MG/ML INJ IV PRN ×4 (05:22→20:46)
[2018-10-17] MEDS: ACETAMINOPHEN 500 MG TAB PO PRN (12:10)
--- NOTE | 2018-10-17 12:15 | P.PN ---
Date of Service: 10/16/18 (POD#1) S: FIRST POSTOP DAY AFTER FORMAL IRRIGATION AND DEBRIDEMENT UNDER GENERAL ANESTHESIA DONE WITH ARTHROSCOPIC TECHNIQUE FOR SEPTIC LEFT KNEE, PATIENT IS RELATIVELY COMFORTABLE BUT HAS REACCUMULATED A SIGNIFICANTLY TENSE EFFUSION IN THE LEFT KNEE. BY CONTRAST, THE LEFT ELBOW WAS TREATED DURING THE SAME ANESTHESIA WITH ASPIRATION AND NORMAL SALINE PULSE LAVAGE WITH TWO 18-GAUGE NEEDLES, AND THE PATIENT INDICATES THERE ARE NO SYMPTOMS IN THE LUE TODAY. O: LOW GRADE TEMP 99.1 TO 100.2, PAIN 10,4,4,7 AND 4/10; BANDAGES CLEAN AND DRY ; NV EXAMS INTACT. KNEE ROM LIMITED BY EFFUSION, FREE ROM LEFT ELBOW. PRELIMINARY MICROBIOLOGY INDICATES KNEE ASPIRATE POSITIVE FOR COCCI IN PAIRS AND CHAINS,SENSITIVITY PENDING FOR ALPHA HEMOLYTIC STREPTOCOCCUS. ASPIRATION DONE FOR THE LEFT ELBOW IN THE PATIENT'S ROOM PART OF CONSULTATION PRIOR TO SURGERY SHOWED 22,689 FLUID WBCs AND GRAM STAIN IS SHOWING POSITIVE COCCI IN CLUSTERS. PATIENT CONTINUES ON VANC AND LEVAQUIN. ZOSYN DCED 10/15. ASSESS: PATIENT'S RESURGENT EFFUSION POSSIBLY DUE TO POST OP HEMORRHAGIC EFFUSION INR 1.32, MINIMIZED DEBRIDEMENT TO FIBRIN DEBRIS AND OCCASIONAL ACCIDENTAL ENCOUNTERS WITH HYPERTROPHIC SYNOVIAL TISSUE THAT DID DEMONSTRATE AGGRESSIVE BLEEDING TOURNIQUET WAS NOT INFLATED. P: EXPECT PATIENT TO RESPOND TO BROAD-SPECTRUM ANTIBIOTICS THAT WILL BE ADJUSTED SENSITIVITIES COME IN. WE WILL CONSIDER ASPIRATION OF LEFT KNEE AGAIN TOMORROW IF TENSE EFFUSION PERSISTS. PHYSICAL THERAPY WILL BE ALLOWED TO MOBILIZE THE PATIENT WITH TOE-TOUCH LEFT LOWER EXTREMITY AND WEIGHT BEARING TOLERATED LEFT UPPER EXTREMITY.
--- NOTE | 2018-10-17 14:06 | RAD REPORT ---
EXAM DESCRIPTION: US - Extremity Nonvascular Complete - 10/17/2018 1:55 pm CLINICAL HISTORY: Palpable mass lateral left upper thigh COMPARISON: None. FINDINGS: Sonographic evaluation was performed of the area of palpable concern as located by the pat ient. Edema is evident in the subcutaneous fatty tissues. No abscess or focal fluid collection in the soft tissues. No solid mass identifiable. Deeper musculature without suspicious finding. IMPRESSION: Edema in the subcutaneous fat is seen in the area of concern. No discrete solid or cysti c mass identified.
--- NOTE | 2018-10-17 15:40 | P.PN ---
Subjective Date of Service: 10/17/18 Chief Complaint: Septic arthritis Patient seen and examined at bedside with RN. Chart reviewed. Case discussed with orthopedic at this time. Currently patient is on IV antibiotics pending culture. Does complain of having some pain in the elbow and the left knee. Today noticed that he has been having some swelling on the left thigh Review of Systems 10-point ROS is otherwise unremarkable Physical Examination - Vital Signs Temperature: 98.3 F Blood Pressure: 174/86 Pulse: 93 Respirations: 18 Pulse Ox (%): 95 - Physical Exam General: Alert, In no apparent distress HEENT: Atraumatic, PERRLA, EOMI Neck: Supple, JVD not distended Respiratory: Clear to auscultation bilaterally, Normal air movement Cardiovascular: Regular rate/rhythm, Normal S1 S2 Gastrointestinal: Normal bowel sounds, No tenderness Musculoskeletal: Swelling Integumentary: No rashes Neurological: Normal speech, Normal tone, Normal affect Lymphatics: No axilla or inguinal lymphadenopathy - Studies Microbiology Data (last 24 hrs): 10/14/18 23:00 Body Fluid - Left Knee Gram Stain - Final 10/14/18 05:44 Clean Catch Urine [place] Count - Final 10/14/18 05:44 Clean Catch Urine - Final Medications List Reviewed: Yes Assessment And Plan - Current Problems (Diagnosis) (1) Septic arthritis Onset Date: 10/16/18 Current Visit: Yes Status: Acute Plan: Septic arthritis of the left elbow and left knee -orthopedics consulted appreciated recommendations at this time -status post arthrocentesis -pending cultures at this time -IV antibiotics vanc and Levaquin Qualifiers: Septic arthritis location: multiple locations Septic arthritis organism: due to unspecified organism Qualified Code(s): M00.9 - Pyogenic arthritis, unspecified (2) Polyarthropathy Onset Date: 10/16/18 Current Visit: Yes Status: Acute - Plan Pending clinical improvement at this time Discharge Plan: Home Plan to discharge in: Greater than 2 days - Code Status/Comfort Care Code Status Assessed: Yes Critical Care: No
--- NOTE | 2018-10-17 21:47 | P.PN ---
Date of Service: 10/17/18 (POD#2) S: SECOND POSTOP DAY PATIENT IS RELATIVELY COMFORTABLE WITH A LESS TENSE EFFUSION IN THE LEFT KNEE. THE LEFT ELBOW WHICH WAS TREATED WITH ASPIRATION AND PULSE LAVAGE HAS NO SYMPTOMS TODAY. O: LOW GRADE TEMPS ENDED 8PM LAST NIGHT, NOW AFEBRILE; PAIN 0,0,0,8,2 AND 4/10 OVERNIGHT; BANDAGES CLEAN AND DRY; NV EXAMS INTACT. KNEE ROM STILL LIMITED BY EFFUSION, FREE AROM LEFT ELBOW. PRELIMINARY MICROBIOLOGY INDICATES KNEE ASPIRATE POSITIVE FOR COCCI IN PAIRS AND CHAINS, IDed ALPHA HEMOLYTIC STREPTOCOCCUS. ELBOW ASPIRATE HAD 22,689 FLUID WBCs AND GRAM STAIN SHOWED POSITIVE COCCI IN CLUSTERS, BUT UNLIKELY TO GROW PATHOGEN PATIENT WAS ON VANC, LEVAQUIN, AND ZOSYN BEFORE THE SAMPLE WAS TAKEN. ASSESS: PLAN TO ASSESS EFFUSION TOMORROW AND CONSIDER ADDITIONAL DECOMPRESSION ASPIRATION OF EFFUSION. P: USUALLY GET INFECTIOUS DISEASE CONSULT TO WEIGH IN ON CHOICE AND DURATION OF ABX THERAPY FOR SEPTIC ARTHRITIS. WILL CONSIDER ASPIRATION OF LEFT KNEE AGAIN TOMORROW IF EFFUSION PERSISTS. PHYSICAL THERAPY WILL CONTINUE TO MOBILIZE THE PATIENT WITH TOE-TOUCH LEFT LOWER EXTREMITY AND WEIGHT BEARING TOLERATED LEFT UPPER EXTREMITY.
--- NOTE | 2018-10-18 00:56 | P.PN ---
Date of Service: 10/18/18 BP elevated; septic arthritis is 2-4 week IV abx course. May benefit from PICC line and ID consult
[2018-10-18] MEDS: HYDROMORPHONE HCL 1 MG/ML INJ IV PRN ×3 (02:08→10:18)
[2018-10-18] MEDS: Levofloxacin500mg IV 500 MG/100 ML BAG IV SCH (02:08)
[2018-10-18] MEDS: NA CHLORIDE 0.9% 1,000 ML IV SCH ×4 (02:08→20:32)
[2018-10-18 03:42] LABS: Absolute Lymphocytes (CBC) 0.9 K/uL (0.7-4.9); Absolute Neutrophil 9.8 K/uL (1.8-8.0); Basophils % 0.4 % (0-1.3); Eosinophils % 0.4 % (0-4.4); Hematocrit 33.2 % (39.6-49.0); Lymphocytes % 7.9 % (15.3-44.8); MCH 30.9 pg (27.0-35.0); MCV 89.1 fL (80-100); MPV 7.6 fL (7.6-11.3); Monocytes % 8.8 % (3.3-12.3); RBC Red Blood Cell Count 3.72 M/uL (4.33-5.43)
[2018-10-18 04:08] LABS: ALT/SGPT 29 U/L (12-78); AST/SGOT 20 U/L (15-37); Albumin 1.8 g/dL (3.4-5.0); Alkaline Phosphatase 106 U/L (45-117); BUN Blood Urea Nitrogen 10 mg/dL (7-18); Bicarbonate 27 mmol/L (21-32); Bilirubin Total 0.6 mg/dL (0.2-1.0); Glucose Level 104 mg/dL (74-106); Potassium 3.3 mmol/L (3.5-5.1); Protein, Total 5.8 g/dL (6.4-8.2); Sodium Level 141 mmol/L (136-145)
[2018-10-18] MEDS: VANCOMYCIN 1.5 GM in NA CHLORIDE 0.9% 500 ML IVPB SCH ×2 (05:22→16:42)
[2018-10-18] MEDS ORDERED: LIDOCAINE 1% MPF 5 ML VIAL ONE (08:35)
[2018-10-18] MEDS: ACETAMINOPHEN 500 MG TAB PO PRN (14:12)
--- NOTE | 2018-10-18 15:37 | P.PN ---
Subjective Date of Service: 10/18/18 Chief Complaint: Septic arthritis Patient seen and examined at bedside with RN. Chart reviewed. Case discussed with orthopedic at this time. Currently patient is on IV antibiotics pending culture. Does complain of having some pain in the elbow and the left knee. Doing well overall. Orthopedic to attempt bedside arthrocentesis today Review of Systems 10-point ROS is otherwise unremarkable Physical Examination - Vital Signs Temperature: 99.4 F Blood Pressure: 168/82 Pulse: 72 Respirations: 18 Pulse Ox (%): 93 - Physical Exam General: Alert, In no apparent distress HEENT: Atraumatic, PERRLA, EOMI Neck: Supple, JVD not distended Respiratory: Clear to auscultation bilaterally, Normal air movement Cardiovascular: Regular rate/rhythm, Normal S1 S2 Gastrointestinal: Normal bowel sounds, No tenderness Musculoskeletal: Erythema, Tenderness, Warmth Integumentary: No rashes Neurological: Normal speech, Normal tone, Normal affect Lymphatics: No axilla or inguinal lymphadenopathy - Studies Microbiology Data (last 24 hrs): 10/14/18 23:00 Body Fluid - Left Knee Gram Stain - Final Medications List Reviewed: Yes Assessment And Plan - Current Problems (Diagnosis) (1) Septic arthritis Onset Date: 10/16/18 Current Visit: Yes Status: Acute Plan: Septic arthritis of the left elbow and left knee -orthopedics consulted appreciated recommendations at this time -status post arthrocentesis POD # 2 -pending cultures at this time -IV antibiotics vanc and Levaquin -ID consulted. Awaiting reccs -PICC line placed for possible 6 week of IV abx. -Detailed discuss with Family at bedside. Qualifiers: Septic arthritis location: multiple locations Septic arthritis organism: due to unspecified organism Qualified Code(s): M00.9 - Pyogenic arthritis, unspecified (2) Polyarthropathy Onset Date: 10/16/18 Current Visit: Yes Status: Acute - Plan Pending clinical improvement at this time. PICC line ordered. ID consulted. Continue IV abx and F.u with Dr Byrd Discharge Plan: LTAC Plan to discharge in: Greater than 2 days - Code Status/Comfort Care Code Status Assessed: Yes Critical Care: No
--- NOTE | 2018-10-18 20:07 | CON ---
Subjective: The patient is a 57-year-old male. I was consulted for left knee septic arthritis. The patient was brought in because of backache, which was found to be due to spasm. During the hospital ization, patient developed extreme swelling in his left leg, which was tapped by surgical team. Unfo rtunately was not able to get much of the fluid, so the cultures were not sent. The patient comforta robert sitting in chair, not in any acute distress. Denies any fevers at this time. On admission, daxa ent had low-grade 100 degree fevers. Past Medical History: Back spasms. Social History: Nonsmoker and nondrinker. Family History: Noncontributory. Medications: Vancomycin and Levaquin. See MARs for other medication. Allergies: NO KNOWN DRUG ALLERGIES. Review of Systems: A 10-point review was performed. Physical Examination: General: This is a 57-year-old male, lying in bed, not in any acute cardiopulmonary distress. Vital Signs: Temperature 99.4, pulse 72, respirations 18, blood pressure 168/82. HEENT: Unremarkable. Neck: Supple. Lungs: Basal crackles. Heart: S1, S2. Regular. Abdomen: Soft, nontender. Bowel sounds positive. Extremities: Left knee swelling has subsided. Increased warmth noted. Laboratory Data: WBC 11.9 down from 23,000, hemoglobin 11.5, platelets are 302. Chemistry shows sod ium 141, potassium 3.3, chloride 107, bicarb 27, BUN 10, creatinine 0.6, glucose 104. Micro data tony blood culture no growth. Left knee x-ray, large joint effusion with degenerative changes in the k nee joint, no acute bone finding. Clinical concern for internal derangement of occult bony injury co uld be further assessed with MRI. Assessment And Plan: Left knee septic arthritis with leukocytosis. Continue antibiotic for total of 6 weeks. Consider long-term acute care. We will follow the patient as needed. Thank you, Dr. Aby Guzman, for the consult. NF/MODL Voice ID: [id number] Report ID: [id number]
--- NOTE | 2018-10-18 20:15 | P.PN ---
Date of Service: 10/18/18 (POD#3) S: THIRD POSTOP DAY PATIENT IS COMPLAINING OF BACK PAIN AND LEFT KNEE PAIN WITH RELATIVE COMFORT FOR HIS LEFT ELBOW. THE PATIENT'S FIRST SYMPTOMS THAT STARTED THIS EPISODE BROUGHT HIM TO THE HOSPITAL ED WITH SEVERE BACK PAIN THAT HE HAD NEVER BEFORE EXPERIENCED. AFTER DISCUSSION OF RISKS AND BENEFITS THIS MORNING, THE PATIENT ELECTED TO PROCEED WITH AN ATTEMPT TO ASPIRATE THE LEFT KNEE AND DECOMPRESS HIS EFFUSION. O: LOW GRADE TEMPS BEGAN AGAIN AT APPROXIMATELY 8PM LAST NIGHT, AND HAS STAYED CONSISTENTLY BETWEEN 99.0 AND 99.5; HEMOGLOBIN 11.5, STABLE; WHITE BLOOD CELL COUNT DOWN AT 11.9, NEUTROPHILS 83%; PAIN 10,7,7,7 AND O/10 OVERNIGHT MOSTLY COMPLAINING OF BACK PAIN; BANDAGES REMAIN CLEAN AND DRY; NV EXAMS INTACT. KNEE ROM STILL LIMITED BY EFFUSION, LEFT ELBOW BANDAGE WAS REMOVED AND ACTIVE RANGE OF MOTION WAS 30 TO 130. THE PATIENT WAS ABLE TO GO 125 FEET WITH A ROLLING WALKER, TOE-TOUCH ONLY FOR THE LEFT LOWER EXTREMITY USING THE LEFT UPPER EXTREMITY FOR WEIGHT BEARING ON THE WALKER. PROCEDURE: AFTER INFORMED CONSENT WAS OBTAINED, TIMEOUT WAS CALLED AND PERTINENT FACTS WERE DISCUSSED AND IT WAS AGREED TO PROCEED WITH ASPIRATION OF THE LEFT KNEE. THE PREP CONSISTED OF 2 CHLORHEXIDINE SWAB STICKS AND THEN ALCOHOL SWAB. A 25-GAUGE NEEDLE WAS USED TO INJECT 5 mL 1% LIDOCAINE IN THE LATERAL PARAPATELLAR LINE AT THE LEVEL OF THE SUPERIOR POLE OF THE PATELLA. THE TAP PROVED UNSUCCESSFUL AT REMOVING MORE THAN 3 mL OF A DARK BLOODY FLUID. THE FLUID WAS DISCARDED AND A BAND-AID WAS APPLIED. PRIOR ARTHROSCOPIC PORTALS WERE LEFT COVERED WITH XEROFORM GAUZE AND NEW 4 X 4 GAUZE WAS SECURED WITH AN HANNAH WRAP. ASSESS: PLAN TO REASSESS TOMORROW AM AND CONSIDER A FOLLOW-UP ARTHROSCOPIC IRRIGATION OF THE LEFT KNEE TOMORROW AFTERNOON IF THE CARE TEAM IS IN AGREEMENT. A FOLLOW-UP ASPIRATION WITH PULSE LAVAGE COULD ALSO BE PERFORMED FOR THE LEFT ELBOW. P: IN PREPARATION FOR POSSIBLY DOING SURGERY TOMORROW, THE PATIENT WILL BE MADE NPO AFTER MIDNIGHT. PHYSICAL THERAPY WILL CONTINUE TO MOBILIZE THE PATIENT WITH TOE-TOUCH LEFT LOWER EXTREMITY AND WEIGHT BEARING TOLERATED LEFT UPPER EXTREMITY.
[2018-10-18] MEDS: DOCUSATE NA 100 MG CAP PO SCH (20:32)
[2018-10-18] MEDS: SENOSIDES 8.6 MG TAB PO SCH (20:32)
[2018-10-18] MEDS: HYDROCODONE/APAP 7.5/325 MG TAB PO PRN (20:42)
[2018-10-19] MEDS: Levofloxacin500mg IV 500 MG/100 ML BAG IV SCH (02:22)
[2018-10-19] MEDS: NA CHLORIDE 0.9% 1,000 ML IV SCH ×2 (04:26→16:17)
[2018-10-19] MEDS: VANCOMYCIN 1.5 GM in NA CHLORIDE 0.9% 500 ML IVPB SCH ×2 (04:36→16:00)
[2018-10-19] MEDS: ACETAMINOPHEN 500 MG TAB PO PRN (04:46)
[2018-10-19 06:20] LABS: Absolute Lymphocytes (CBC) 1.1 K/uL (0.7-4.9); Absolute Neutrophil 9.4 K/uL (1.8-8.0); Basophils % 0.2 % (0-1.3); Eosinophils % 0.8 % (0-4.4); Lymphocytes % 9.5 % (15.3-44.8); MCH 31.6 pg (27.0-35.0); MCV 88.1 fL (80-100); MPV 7.5 fL (7.6-11.3); Monocytes % 8.5 % (3.3-12.3); RBC Red Blood Cell Count 3.74 M/uL (4.33-5.43)
[2018-10-19 06:27] LABS: ALT/SGPT 29 U/L (12-78); AST/SGOT 15 U/L (15-37); Albumin 1.8 g/dL (3.4-5.0); Alkaline Phosphatase 95 U/L (45-117); BUN Blood Urea Nitrogen 10 mg/dL (7-18); Bicarbonate 26 mmol/L (21-32); Bilirubin Total 0.6 mg/dL (0.2-1.0); Glucose Level 96 mg/dL (74-106); Protein, Total 5.7 g/dL (6.4-8.2); Sodium Level 137 mmol/L (136-145)
--- NOTE | 2018-10-19 08:19 | RAD REPORT ---
EXAM DESCRIPTION: RAD - Chest Single View - 10/19/2018 12:16 am CLINICAL HISTORY: picc placement COMPARISON: Chest Single View dated 10/10/2018; CHEST PA AND LAT 2 VIEW dated 04/10/2014 FINDINGS: Portable chest was obtained following placement of a right upper extremity PICC line. The catheter tip projects over the SVC..
[2018-10-19] MEDS: DOCUSATE NA 100 MG CAP PO SCH ×2 (09:00→20:45)
[2018-10-19] MEDS: HYDROMORPHONE HCL 1 MG/ML INJ IV PRN (11:21)
--- NOTE | 2018-10-19 11:41 | P.PN ---
Date of Service: 10/19/18 (POD#4) S: 4th POSTOP DAY PATIENT PERSISTS WITH BACK PAIN AND LEFT KNEE PAIN WITH NO COMPLAINTS TODAY FOR HIS LEFT ELBOW. THE PATIENT WAS SEEN BY DR. GAYTAN LAST NIGHT AND DISCUSSION INCLUDED PLANS FOR LTAC AND 4-6 WEEKS IV ABX. AFTER DISCUSSION OF RISKS AND BENEFITS THIS MORNING, THE PATIENT HAS ELECTED TO PROCEED WITH A 2ND FORMAL ARTHROSCOPIC IRRIGATION AND DEBRIDEMENT FOR THE LEFT KNEE TO DECOMPRESS HIS EFFUSION. O: LOW GRADE TEMP ELEVATIONS CONTINUED AGAIN LAST NIGHT; HEMOGLOBIN 11.6, STABLE; WHITE BLOOD CELL COUNT 11.1, NEUTROPHILS 86%; PAIN 7,7,6,0 AND 3/10 OVERNIGHT; BANDAGE REPLACED LAST NIGHT AFTER DR. GAYTAN'S VISIT IS TOO TIGHTLY WRAPPED , FOOT AND ANKLE ARE DEMONSTRATING 3+ EDEMA, BANDAGE LOOSENED AND RE- WRAPPED; NV EXAMS INTACT. KNEE ROM STILL LIMITED AT EXTREMES BY EFFUSION, BUT PATIENT CAN LEG LIFT AND FLEX EXTEND BENT KNEE BY 30 - 40. LEFT ELBOW ACTIVE RANGE OF MOTION iS WITHOUT PAIN AND EXTENSION HAS IMPROVED. THE PATIENT WAS ABLE TO GO 125 FEET YESTERDAY WITH A ROLLING WALKER, TOE-TOUCH ONLY FOR THE LEFT LOWER EXTREMITY, AND USED THE LEFT UPPER EXTREMITY FOR WEIGHT BEARING ON THE WALKER. ASSESS: DISCUSSED DR. GAYTAN'S CONSULT AND ISSUES INVOLVING THIS CASE WITH DR. PAUL. WE AGREED THAT FOLLOW-UP ARTHROSCOPIC IRRIGATION OF THE LEFT KNEE WILL BE SCHEDULED FOR THIS AFTERNOON. THE LEFT ELBOW IS BEING USED WITHOUT SYMPTOMS AND WILL NOT HAVE ANOTHER PROCEDURE. P: PREPARATION FOR SURGERY SET IN MOTION. eSTIMATED PROCEDURE WILL HAPPEN APPROXIMATELY 13:00 TODAY. THIS WILL iNVOLVED WASHOUT WITH THE LEAST AMOUNT OF DEBRIDEMENT TO STIR UP A POSTOP HEMARTHROSIS. WE WILL CONTINUE TO MOBILIZE THE PATIENT WITH TOE-TOUCH LEFT LOWER EXTREMITY AND ALLOW WEIGHT BEARING TOLERATED FOR THE LEFT UPPER EXTREMITY.
[2018-10-19] MEDS ORDERED: POTASSIUM CL SA 10 MEQ TAB PO ONE (12:00)
[2018-10-19] MEDS ORDERED: PROPOFOL 200 MG/20 ML VIAL IV ONE (13:41)
[2018-10-19] MEDS ORDERED: ONDANSETRON HCL 40 MG/20 ML VIAL ONE (13:42)
[2018-10-19] MEDS ORDERED: MIDAZOLAM HCL 2 MG/2 ML INJ ONE (13:42)
[2018-10-19] MEDS ORDERED: LIDOCAINE 2% MPF 5 ML VIAL ONE (13:42)
[2018-10-19] MEDS ORDERED: FENTANYL CITR 100 MCG/2 ML ONE ×2 (13:42→14:30)
[2018-10-19] MEDS: BUPIVACA 0.25%/EPI 0.0005% MDV 50 ML VIAL ONE ×3 (14:26→14:59)
--- NOTE | 2018-10-19 14:44 | P.PN ---
Subjective Date of Service: 10/19/18 Chief Complaint: Septic arthritis Patient seen and examined at bedside with RN. Chart reviewed. Case discussed with orthopedic at this time. Currently patient is on IV antibiotics overall. Currently awaiting surgical Procedure. Review of Systems 10-point ROS is otherwise unremarkable Physical Examination - Vital Signs Temperature: 99.2 F Blood Pressure: 197/98 Pulse: 78 Respirations: 18 Pulse Ox (%): 98 - Physical Exam General: Alert, In no apparent distress HEENT: Atraumatic, PERRLA, EOMI Neck: Supple, JVD not distended Respiratory: Clear to auscultation bilaterally, Normal air movement Cardiovascular: Regular rate/rhythm, Normal S1 S2 Gastrointestinal: Normal bowel sounds, No tenderness Musculoskeletal: Erythema, Tenderness, Warmth (Left knee and left elbow swelling noted. Patient also has ankle Swelling. ) Integumentary: No rashes Neurological: Normal speech, Normal tone, Normal affect Lymphatics: No axilla or inguinal lymphadenopathy - Studies Microbiology Data (last 24 hrs): 10/14/18 23:00 Body Fluid - Left Knee Gram Stain - Final 10/14/18 23:00 Body Fluid - Left Knee Culture & Sensitivity - Final Strep Pneumoniae 10/14/18 22:15 Blood - Blood Aerobic Blood Culture - Final Strep Pneumoniae 10/14/18 22:15 Blood - Blood Gram Stain - Final 10/14/18 22:15 Blood - Blood Anaerobic Blood Culture - Final Strep Pneumoniae 10/14/18 22:15 Blood - Blood Gram Stain - Final Medications List Reviewed: Yes Assessment And Plan - Current Problems (Diagnosis) (1) Septic arthritis Onset Date: 10/16/18 Current Visit: Yes Status: Acute Plan: Septic arthritis of the left elbow and left knee -orthopedics consulted appreciated recommendations at this time -status post arthrocentesis POD # 3 -cultures positive for strep pneumoniae -IV antibiotics vanc and Levaquin -ID consulted. Killian appreciated -PICC line placed for possible 6 week of IV abx. -Detailed discussion with Family at bedside. -currently awaiting surgical procedure with ortho Qualifiers: Septic arthritis location: multiple locations Septic arthritis organism: due to unspecified organism Qualified Code(s): M00.9 - Pyogenic arthritis, unspecified (2) Polyarthropathy Onset Date: 10/16/18 Current Visit: Yes Status: Acute - Plan Pending clinical improvement at this time. PICC line ordered. ID consulted. Continue IV abx and F.u with Dr Byrd Discharge Plan: Other Plan to discharge in: 72 Hours - Code Status/Comfort Care Code Status Assessed: Yes Critical Care: No
[2018-10-19] MEDS ORDERED: KETOROLAC 30 MG/ML INJ ONE (15:03)
[2018-10-19] MEDS ORDERED: MEPERIDINE HCL 25 MG/0.5 ML ONE ×2 (15:30→15:32)
--- NOTE | 2018-10-19 15:44 | P.BOP ---
Preoperative diagnosis: LEFT KNEE AND LEFT ELBOW SEPTIC ARTHRITIS Postoperative diagnosis: SAME Primary procedure: ARTHROSCOPIC FOLLOW-UP 2ND IRRIGATION&DEBRIDEMENT L KNEE SEPTIC ARTHRITIS [employer] Investigator: Alejandro Byrd Estimated blood loss: 10 mL Specimen: NO CULTURES SENT; [id number] SHAVINGS SENT Findings: MOSTLLY HEMORRHAGIC CLOT AND SOME FIBRIN DEBRIS Anesthesia: General Complications: None Drain(s): Other (HEMOVAC 1/" DRAIN SEWN IN WITH 4-0 NYLON) Implants: NONE Fluids & blood products: INJ 10 mL 0.25%MARCAINE PLAIN L KNEE;5mL L ELBOW Transferred to: Recovery Room Condition: Good
[2018-10-19] MEDS: KCL 20 MEQ/100 mL IVPB 20 MEQ/100 ML BAG IV SCH ×2 (16:17→20:45)
--- NOTE | 2018-10-19 17:37 | PN ---
Subjective: The patient is growing Strep pneumoniae in his blood and in his joint aspirate. The pat shanelle denies any other discomfort, except constipation of 10 days. Continues to have discomfort in hi s leg and going for surgical debridement. Objective: Vital Signs: Temperature 98.6, pulse 66, respirations 18, and blood pressure 160/84. Lungs: Basal crackles. Heart: S1 and S2, regular. Abdomen: Soft. Bowel sounds present. Extremities: Left knee tenderness noted. Laboratory Data: WBCs 11.6, hemoglobin 11.8, and platelets are 347. Assessment: Septic arthritis. Plan: Continue antibiotic and supportive care for 6 weeks. We will follow the patient closely. Ech o is negative for endocarditis. The patient is going for surgical debridement. NF/MODL Voice ID: [id number] Report ID: [id number]
[2018-10-19] MEDS: SENOSIDES 8.6 MG TAB PO SCH (20:45)
[2018-10-20] MEDS: NA CHLORIDE 0.9% 1,000 ML IV SCH ×3 (01:12→19:59)
[2018-10-20] MEDS: Levofloxacin500mg IV 500 MG/100 ML BAG IV SCH (01:13)
[2018-10-20] MEDS: HYDROMORPHONE HCL 1 MG/ML INJ IV PRN ×4 (01:16→22:49)
--- NOTE | 2018-10-20 02:39 | OP ---
Date of Procedure: 10/19/2018 Surgeon: Alejandro Byrd MD Rubber Block Layer: Alejandro Byrd MD. Preoperative Diagnosis: Left knee septic arthritis. Postoperative Diagnosis: Left knee septic arthritis. Primary Procedure: Arthroscopic followup second irrigation and debridement for the left knee septic arthritis. Indications: This 57-year-old male has had septicemia and subsequently septic arthritis in both the left knee and left elbow on Monday, 4 days ago. The patient had an initial irrigation and debridemen t with the arthroscopic technique for the knee and an 18-gauge washout for the left elbow with lavage technique. The patient over the past few days was initially moving well and afebrile, but then deve loped persistent low-grade temperature elevations. He has had no complaint with his left elbow other than it is somewhat stiff and will not straighten all the way. He has been using it for physical th erapy, use of a walker, weightbearing with the left upper extremity, so the persistent aggravation of the left knee has prompted return to surgery for a second irrigation and debridement procedure. The patient is aware of risks and benefits and has elected to proceed. Technique: The patient was taken to the operating room and given a general anesthesia after being pl aced on the operative table. The left lower extremity had a tourniquet applied at the proximal thigh , but it was not elevated during this procedure. The leg adler was applied to the left upper extrem ity and a trough cushion was placed under the right lower extremity with a bolster to keep the hip fr om hyperextending on the right side. The foot of the table was removed and the left leg was allowed to dangle and then prepping and draping was carried out without elevation of the tourniquet. The 4-0 nylon stitches in the puncture wounds on each side of the infrapatellar tendon were snipped and shae dianne and the same portal was used for this second irrigation and debridement. An 11 blade was used to open the portals and the scope was placed in the distal lateral portal instrumentation into the dist al medial portal. The shaver was the initial instrument placed in the knee to utilize suction and so me debridement activity. The scope was used to look in the suprapatellar pouch and in each gutter an d wherever fibrin debris was encountered, it was removed and blood clots were also removed from the s uprapatellar area and the intracondylar area. The knee was irrigated profusely using 6 L of normal s bolivar. The lateral portal was used for the scope throughout the whole procedure. The medial portal had the shaver withdrawn at the end of irrigation and a Hemovac drain was passed through that portal under the patella and out the lateral aspect of the suprapatellar pouch. The exit of the tube was se cured with 4-0 nylon stitch anchoring a tie off for the one 8-inch diameter irrigation tube. At that time, both punctures were again closed with interrupted sutures of 4-0 nylon. The punctures were in jected with 0.25% Marcaine plain, 10 mL. Estimated blood loss was 10 mL. No cultures were sent as t he patient is on high-dose antibiotic and nothing is expected to grow. Arthroscopic shavings were se nt. Findings were mostly hemorrhagic clot and some fibrin debris. A sterile bandage was applied usi ng 4 x 4's and David wrap. The patient was then taken to the recovery room having tolerated this proce dure well. DENY/NATALIYA Voice ID: [id number] Report ID: [id number]
[2018-10-20] MEDS: VANCOMYCIN 1.5 GM in NA CHLORIDE 0.9% 500 ML IVPB SCH ×2 (04:42→15:36)
[2018-10-20 06:23] LABS: ALT/SGPT 28 U/L (12-78); AST/SGOT 15 U/L (15-37); Albumin 1.7 g/dL (3.4-5.0); Alkaline Phosphatase 77 U/L (45-117); BUN Blood Urea Nitrogen 11 mg/dL (7-18); Bicarbonate 26 mmol/L (21-32); Bilirubin Total 0.5 mg/dL (0.2-1.0); Glucose Level 90 mg/dL (74-106); Potassium 3.3 mmol/L (3.5-5.1); Protein, Total 5.4 g/dL (6.4-8.2); Sodium Level 142 mmol/L (136-145)
[2018-10-20 06:28] LABS: Absolute Lymphocytes (CBC) 1.3 K/uL (0.7-4.9); Absolute Monocytes 0.9 K/uL (0.1-1.3); Absolute Neutrophil 9.8 K/uL (1.8-8.0); Basophils % 0.5 % (0-1.3); Hematocrit 29.8 % (39.6-49.0); Lymphocytes % 10.3 % (15.3-44.8); MCH 31.1 pg (27.0-35.0); MCV 89.1 fL (80-100); MPV 7.3 fL (7.6-11.3); Monocytes % 7.4 % (3.3-12.3); RBC Red Blood Cell Count 3.35 M/uL (4.33-5.43)
[2018-10-20] MEDS: DOCUSATE NA 100 MG CAP PO SCH ×2 (08:34→20:01)
[2018-10-20] MEDS: HYDROCODONE/APAP 7.5/325 MG TAB PO PRN ×2 (08:48→13:04)
[2018-10-20] MEDS: ACETAMINOPHEN 500 MG TAB PO PRN (10:48)
--- NOTE | 2018-10-20 11:51 | P.PN ---
Subjective Date of Service: 10/20/18 Chief Complaint: Septic arthritis Patient seen and examined at bedside with RN. Chart reviewed. Case discussed with orthopedic at this time. Currently patient is on IV antibiotics overall. S/P Drainage POD # 1 Review of Systems 10-point ROS is otherwise unremarkable Physical Examination - Vital Signs Temperature: 98.8 F Blood Pressure: 172/86 Pulse: 76 Respirations: 18 Pulse Ox (%): 95 - Physical Exam General: Alert, In no apparent distress HEENT: Atraumatic, PERRLA, EOMI Neck: Supple, JVD not distended Respiratory: Clear to auscultation bilaterally, Normal air movement Cardiovascular: Regular rate/rhythm, Normal S1 S2 Gastrointestinal: Normal bowel sounds, No tenderness Musculoskeletal: Erythema, Tenderness, Warmth, Other (Right Knee Swelling with Wound Suction. Serous Drainage noted. ) Integumentary: No rashes Neurological: Normal speech, Normal tone, Normal affect Lymphatics: No axilla or inguinal lymphadenopathy - Studies Microbiology Data (last 24 hrs): 10/14/18 21:25 Blood - Blood Aerobic Blood Culture - Final Strep Pneumoniae 10/14/18 21:25 Blood - Blood Gram Stain - Final 10/14/18 21:25 Blood - Blood Anaerobic Blood Culture - Final No growth in 5 days. 10/14/18 23:00 Body Fluid - Left Knee Gram Stain - Final 10/14/18 23:00 Body Fluid - Left Knee Culture & Sensitivity - Final Strep Pneumoniae 10/14/18 22:15 Blood - Blood Aerobic Blood Culture - Final Strep Pneumoniae 10/14/18 22:15 Blood - Blood Gram Stain - Final 10/14/18 22:15 Blood - Blood Anaerobic Blood Culture - Final Strep Pneumoniae 10/14/18 22:15 Blood - Blood Gram Stain - Final Medications List Reviewed: Yes Assessment And Plan - Current Problems (Diagnosis) (1) Septic arthritis Onset Date: 10/16/18 Current Visit: Yes Status: Acute Plan: Septic arthritis of the left elbow and left knee.Left Knee with hemarthritis -orthopedics consulted appreciated recommendations at this time -status post arthrocentesis POD # 3 -Status Post Drainage POD# 1 -cultures positive for strep pneumoniae -IV antibiotics vanc and Levaquin -ID consulted. Killian appreciated -PICC line placed for possible 6 week of IV abx. -Detailed discussion with Family at bedside. Qualifiers: Septic arthritis location: multiple locations Septic arthritis organism: due to unspecified organism Qualified Code(s): M00.9 - Pyogenic arthritis, unspecified (2) Polyarthropathy Onset Date: 10/16/18 Current Visit: Yes Status: Acute - Plan Pending clinical improvement at this time. PICC line ordered. ID consulted. Continue IV abx and F.u with Dr Byrd Discharge Plan: Home Plan to discharge in: 48 Hours - Code Status/Comfort Care Code Status Assessed: Yes Critical Care: No
[2018-10-20] MEDS: SENOSIDES 8.6 MG TAB PO SCH (20:01)
--- NOTE | 2018-10-20 20:13 | P.PN ---
Date of Service: 10/20/18 S: PATIENT POD#1 FOR 2nd IRRIGATION/DEBRIDEMENT L KNEE. HEMOVAC DRAIN IN PLACE, PRODUCING SEROSANG. FLUID. PERSISTS WITH BACK PAIN AND LEFT KNEE PAIN. NO COMPLAINTS TODAY FOR LEFT ELBOW. O: AFEBRILE; HEMOGLOBIN 10.4; WHITE BLOOD CELL COUNT 12.2; PAIN 2,0,0,9 AND 0/ 10 OVERNIGHT; BANDAGE DRY AND INTACT, DRAIN IN PLACE; NV EXAMS INTACT. A: AGREE WITH LTAC TRANSFER IN 48 hrs. P: CONTINUE TO MOBILIZE THE PATIENT WITH TOE-TOUCH LEFT LOWER EXTREMITY AND ALLOW WEIGHT BEARING TOLERATED FOR THE LEFT UPPER EXTREMITY.
[2018-10-21] MEDS: Levofloxacin500mg IV 500 MG/100 ML BAG IV SCH (01:00)
[2018-10-21] MEDS: HYDROMORPHONE HCL 1 MG/ML INJ IV PRN ×2 (02:58→10:32)
[2018-10-21] MEDS: VANCOMYCIN 1.5 GM in NA CHLORIDE 0.9% 500 ML IVPB SCH ×2 (03:56→16:02)
[2018-10-21] MEDS: ACETAMINOPHEN 500 MG TAB PO PRN ×2 (05:47→16:01)
[2018-10-21] MEDS: HYDROCODONE/APAP 7.5/325 MG TAB PO PRN (08:14)
[2018-10-21] MEDS: DOCUSATE NA 100 MG CAP PO SCH ×2 (08:14→20:02)
[2018-10-21] MEDS: NA CHLORIDE 0.9% 1,000 ML IV SCH (08:15)
[2018-10-21 13:16] LABS: Absolute Lymphocytes (CBC) 1.5 K/uL (0.7-4.9); Absolute Monocytes 0.9 K/uL (0.1-1.3); Absolute Neutrophil 13.7 K/uL (1.8-8.0); Basophils % 0.6 % (0-1.3); Eosinophils % 0.9 % (0-4.4); Hematocrit 33.9 % (39.6-49.0); Lymphocytes % 9.1 % (15.3-44.8); MCH 30.8 pg (27.0-35.0); MCV 89.4 fL (80-100); Monocytes % 5.7 % (3.3-12.3); RBC Red Blood Cell Count 3.79 M/uL (4.33-5.43)
--- NOTE | 2018-10-21 13:24 | P.PN ---
Subjective Date of Service: 10/21/18 Chief Complaint: Septic arthritis Patient seen and examined at bedside with RN. Chart reviewed. Case discussed with orthopedic at this time. Currently patient is on IV antibiotics overall. S/P Drainage POD # 2 Review of Systems 10-point ROS is otherwise unremarkable Physical Examination - Vital Signs Temperature: 98.4 F Blood Pressure: 165/84 Pulse: 79 Respirations: 18 Pulse Ox (%): 97 - Physical Exam General: Alert, In no apparent distress HEENT: Atraumatic, PERRLA, EOMI Neck: Supple, JVD not distended Respiratory: Clear to auscultation bilaterally, Normal air movement Cardiovascular: Regular rate/rhythm, Normal S1 S2 Gastrointestinal: Normal bowel sounds, No tenderness Musculoskeletal: Other (Left elbow with minimal swelling noted. Left knee drainage removed. Minimal swelling noted as well. Currently in a [place]. Left ankle is swollen 2+ edema.) Integumentary: No rashes Neurological: Normal speech, Normal tone, Normal affect Lymphatics: No axilla or inguinal lymphadenopathy - Studies Medications List Reviewed: Yes Assessment And Plan - Current Problems (Diagnosis) (1) Septic arthritis Onset Date: 10/16/18 Current Visit: Yes Status: Acute Plan: Septic arthritis of the left elbow and left knee.Left Knee with hemarthritis -orthopedics consulted appreciated recommendations at this time -status post arthrocentesis POD # 4 -Status Post Drainage POD# 2 -cultures positive for strep pneumoniae -IV antibiotics vanc and Levaquin -ID consulted. Killian appreciated -PICC line placed for possible 6 week of IV abx. -Detailed discussion with Family at bedside. Qualifiers: Septic arthritis location: multiple locations Septic arthritis organism: due to unspecified organism Qualified Code(s): M00.9 - Pyogenic arthritis, unspecified (2) Polyarthropathy Onset Date: 10/16/18 Current Visit: Yes Status: Acute - Plan Pending placement to LTAC facility at this time. 6 weeks of IV antibiotics. PICC line is in place. Patient will need IV vancomycin and Levaquin for his strep pneumonia. Discharge Plan: Home Plan to discharge in: 48 Hours - Code Status/Comfort Care Code Status Assessed: Yes Critical Care: No
[2018-10-21 13:34] LABS: ALT/SGPT 34 U/L (12-78); AST/SGOT 17 U/L (15-37); Alkaline Phosphatase 88 U/L (45-117); BUN Blood Urea Nitrogen 7 mg/dL (7-18); Bicarbonate 29 mmol/L (21-32); Bilirubin Total 0.4 mg/dL (0.2-1.0); Glucose Level 130 mg/dL (74-106); Potassium 3.2 mmol/L (3.5-5.1); Protein, Total 5.9 g/dL (6.4-8.2); Sodium Level 141 mmol/L (136-145)
[2018-10-21] MEDS: SENOSIDES 8.6 MG TAB PO SCH (20:02)
[2018-10-21 22:35] VITALS: O2SAT 98
[2018-10-22] MEDS: NA CHLORIDE 0.9% 1,000 ML IV SCH ×3 (01:10→14:00)
[2018-10-22] MEDS: Levofloxacin500mg IV 500 MG/100 ML BAG IV SCH (01:10)
[2018-10-22] MEDS: HYDROCODONE/APAP 7.5/325 MG TAB PO PRN (01:16)
[2018-10-22] MEDS: VANCOMYCIN 1.5 GM in NA CHLORIDE 0.9% 500 ML IVPB SCH ×2 (03:17→15:59)
[2018-10-22 05:27] LABS: Absolute Lymphocytes (CBC) 1.6 K/uL (0.7-4.9); Absolute Monocytes 0.7 K/uL (0.1-1.3); Absolute Neutrophil 8.8 K/uL (1.8-8.0); Basophils % 0.4 % (0-1.3); Eosinophils % 1.7 % (0-4.4); Hematocrit 29.9 % (39.6-49.0); Lymphocytes % 13.8 % (15.3-44.8); MCH 30.9 pg (27.0-35.0); MCV 89.4 fL (80-100); MPV 7.4 fL (7.6-11.3); Monocytes % 6.2 % (3.3-12.3); RBC Red Blood Cell Count 3.34 M/uL (4.33-5.43)
[2018-10-22 05:48] LABS: ALT/SGPT 31 U/L (12-78); AST/SGOT 16 U/L (15-37); Albumin 1.8 g/dL (3.4-5.0); Alkaline Phosphatase 70 U/L (45-117); BUN Blood Urea Nitrogen 8 mg/dL (7-18); Bicarbonate 29 mmol/L (21-32); Bilirubin Total 0.4 mg/dL (0.2-1.0); Glucose Level 93 mg/dL (74-106); Potassium 3.1 mmol/L (3.5-5.1); Protein, Total 5.4 g/dL (6.4-8.2); Sodium Level 142 mmol/L (136-145)
--- NOTE | 2018-10-22 06:57 | P.PN ---
Date of Service: 10/21/18 S: PATIENT POD#2 FOR 2nd IRRIGATION/DEBRIDEMENT L KNEE. HEMOVAC DRAIN PRODUCED 24 mL SEROSANG. FLUID in last 24 HRS. PERSISTS WITH BACK PAIN AND LEFT KNEE PAIN. NO COMPLAINTS TODAY FOR LEFT ELBOW. O: AFEBRILE; HEMOGLOBIN 11.7; WHITE BLOOD CELL COUNT 16.4; BANDAGE DRY AND INTACT, DRAIN REMOVED; NV EXAMS INTACT. A: AGREE WITH LTAC TRANSFER FOR 6 WEEKS IV ABX TX. P: CONTINUE TO MOBILIZE THE PATIENT WITH PROGRESSIVE WEIGHT BEARING TOLERATED LEFT LOWER EXTREMITY AND LEFT UPPER EXTREMITY.
[2018-10-22] MEDS: DOCUSATE NA 100 MG CAP PO SCH (08:17)
[2018-10-22] MEDS: ACETAMINOPHEN 500 MG TAB PO PRN (09:23)
--- NOTE | 2018-10-22 14:26 | P.DS ---
Admission Date: 10/15/18 Discharge Date: 10/22/18 Disposition: NURSING HOME ACUTE CARE FACILITY Discharge Condition: GOOD Reason for Admission: Septic arthritis - Problems (1) Septic arthritis Onset Date: 10/16/18 Current Visit: Yes Status: Acute Qualifiers: Septic arthritis location: multiple locations Septic arthritis organism: due to unspecified organism Qualified Code(s): M00.9 - Pyogenic arthritis, unspecified (2) Polyarthropathy Onset Date: 10/16/18 Current Visit: Yes Status: Acute Brief History of Present Illness: Patient is a 57-year-old gentleman who came into the hospital with pain in his left knee. Apparently was swollen twice as large as the right knee. The family brought him into the hospital to be evaluated. He was in the ER a few days ago with back pain and herniated discs. There was no cord compression so patient was discharged home from [facility]. When he got home he was doing okay until 24 hr later when the knee started to swell. As the swelling worsened he came to the ER. In the ER he had a arthrocentesis performed which revealed Gram-positive rods from the fluid. Patient will be admitted for septic arthritis. Patient also has involvement of the left elbow. Blood cultures are pending. Echocardiogram is pending. Patient will need to be treated with broad-spectrum antibiotic coverage pending culture results. Hospital Course: Overall during the hospital stay patient remained stable Patient was initially admitted to the hospital for septic arthritis of the knee on the left side along with the left elbow septic arthritis as well. Patient had arthro symphysis of the elbow in the ER before starting the antibiotics with orthopedic surgeon. Orthopedic was consulted once the patient was admitted to the hospital to follow along as well. Patient was initially started on IV vancomycin and Zosyn. Patient then had an arthrocentesis of the left knee done which is consistent with very purulent discharge along with elevated WBC. It was presumed the patient fluid aspirate was most likely septic and thus patient was continued on IV antibiotics here in the hospital. Patient initially had marked improvement in his symptoms with this improvement in the knee and elbow swelling. However day 3 of admission patient started noticing that his knee has been starting to swell again. At that time ortho was notified who did perform a bedside thoracentesis and noted hemarthrosis on aspiration. At that time a decision was made that patient probably needs incision and drainage in the OR for further treatment. Patient was scheduled with orthopedics and had an incision drainage with a drainage placement for next 24 hr. Patient tolerated the procedure well and the drainage was removed after 24 hr. Patient is a knee culture and left elbow culture along with blood culture were all 3 positive for strep pneumoniae at the time patient was then continued on IV vanc and Levaquin. Patient's knee swelling and elbow swelling improved markedly and patient was able to have full range of motion in the left elbow and limited range of motion in the knee due to pain. At that time patient was referred to a long-term acute care facility for placement for total of 6 weeks of IV antibiotics for septic arthritis. [facility] and thus was transferred over for further care. Patient is to continue taking IV antibiotics for total of 6 weeks along with wound care Vital Signs/Physical Exam: Temp Pulse Resp BP Pulse Ox 97.9 F 91 H 18 147/84 H 95 10/22/18 12:00 10/22/18 12:00 10/22/18 12:00 10/22/18 12:00 10/22/18 12:00 General: Alert, In no apparent distress HEENT: Atraumatic, PERRLA, EOMI Neck: Supple, JVD not distended Respiratory: Clear to auscultation bilaterally, Normal air movement Cardiovascular: Regular rate/rhythm, Normal S1 S2 Gastrointestinal: Normal bowel sounds, No tenderness Musculoskeletal: No tenderness Integumentary: No rashes Neurological: Normal speech, Normal tone, Normal affect Lymphatics: No axilla or inguinal lymphadenopathy Laboratory Data at Discharge: WBC 11.3 K/uL (4.3-10.9) H D 10/22/18 04:35 Hgb 10.3 g/dL (13.6-17.9) L 10/22/18 04:35 Hct 29.9 % (39.6-49.0) L 10/22/18 04:35 Plt Count 377 K/uL (152-406) 10/22/18 04:35 PT 16.2 SECONDS (9.5-12.5) H 10/16/18 04:04 INR 1.37 10/16/18 04:04 APTT 27.4 SECONDS (24.3-36.9) 10/16/18 04:04 Sodium 142 mmol/L (136-145) 10/22/18 04:35 Potassium 3.1 mmol/L (3.5-5.1) L 10/22/18 04:35 BUN 8 mg/dL (7-18) 10/22/18 04:35 Creatinine 0.60 mg/dL (0.55-1.3) 10/22/18 04:35 Glucose 93 mg/dL (74-106) 10/22/18 04:35 Total Bilirubin 0.4 mg/dL (0.2-1.0) 10/22/18 04:35 AST 16 U/L (15-37) 10/22/18 04:35 ALT 31 U/L (12-78) 10/22/18 04:35 Alkaline Phosphatase 70 U/L (45-117) 10/22/18 04:35 Home Medications: RX: Cetirizine HCl/Pseudoephedrine [Zyrtec-D Tablet] 1 each PO DAILY 09/07/17 RX: Triamcinolone Acetonide [Nasacort] 10.8 ml NS DAILY 09/07/17 RX: Hydrocodone Bit/Acetaminophen [Hydrocodon-Acetaminophn 10-325] 1 tab PO Q4HP PRN 10/15/18 RX: Tizanidine [Zanaflex*] 4 mg PO Q6HP PRN 10/15/18 Diet: Regular Activity: Ad liz Followup: Darrell Last MD [ACTIVE - CAN ADMIT] - Alejandro Byrd MD [ACTIVE - CAN ADMIT] -
[2018-10-22 16:28] VITALS: BP 156/81; TEMP 99.5
--- NOTE | 2018-10-22 20:17 | PN ---
Subjective: The patient lying in bed denies any headache, nausea, vomiting, chest pain, abdominal pa in, constipation, or diarrhea. Objective: Vital Signs: Temperature 97.9, pulse 91, respiration 18, blood pressure 147/84. Lungs: Clear to auscultation. Heart: S1, S2. Regular. Abdomen: Soft, nontender. Bowel sounds positive. Extremity: Left leg swelling noted in the knee area. Laboratory Data: WBC 11.3, hemoglobin 10.3, platelets 377. Sodium 142, potassium 3.1, chloride 106, bicarb 29, BUN 8, creatinine 0.6, glucose 93. Microdata shows Strep pneumoniae in blood and in the knee joint. The patient currently being treated with vancomycin and Levaquin. Assessment And Plan: Septic knee with bacteremia and synovial fluid positive for Strep pneumoniae an d blood cultures positive for Strep pneumoniae. Continue antibiotic and supportive care for total of 6 weeks. We will follow the patient as needed. BEKA/MODL Voice ID: [id number] Report ID: [id number]
== END 2018-10-22 18:29 | DRG 989 ==
LOC: ER 20:53 → ERHOLD 10-15 01:43 → 4TH 10-15 02:38
PROVIDERS: ADMIT Hospitalist; ATTEND Family Medicine
PROC: 0R9M3ZZ Drainage of Left Elbow Joint, Percutaneous Approach (ICD-10-PCS; 2018-10-15)
PROC: 0SBC4ZZ Excision of Right Knee Joint, Percutaneous Endoscopic Approach (ICD-10-PCS; principal; 2018-10-15 13:45)
PROC: 0S9D3ZZ Drainage of Left Knee Joint, Percutaneous Approach (ICD-10-PCS; 2018-10-18)
PROC: 02HV33Z Insertion of Infusion Device into Superior Vena Cava, Percutaneous Approach (ICD-10-PCS; 2018-10-18)
PROC: 0SBD4ZZ Excision of Left Knee Joint, Percutaneous Endoscopic Approach (ICD-10-PCS; 2018-10-19)
DX: J30.9 Allergic rhinitis, unspecified (principal); M13.0 Polyarthritis, unspecified
CPT/HCPCS: 36415; 71045; 76881; 80048; 80053; 80202; 81003; 81015; 82550; 83605; 84145; 85025; 85610; 85652; 85730; 86140; 87040; 87070; 87075; 87077; 87086; 87088; 87186; 87205; 88304; 89050; 89060; 93971; 96365; 96366; 96375; 97110; 97116; 97163; 97530; 99285; J1170; J2175; J2250; J2405; J2543; J2704; J3010; J3370; J7030